=== PATIENT | male | born 1945 | race Caucasian/White ===

== ENCOUNTER 2016-12-12 08:30 | Emergency (ER) | payer BC, MEDICARE ==
[2016-12-12] MEDS ORDERED: Sodium Chloride 0.9% 10 ML Syringe FLUSH PRN (08:39)
[2016-12-12] MEDS ORDERED: Sodium Chloride 0.9% 1,000 ML IV SCH (08:45)
[2016-12-12] MEDS ORDERED: Ondansetron 4 MG/2 ML SDV IVPUSH ONE (08:47)
--- NOTE | 2016-12-12 09:08 | EDM.PDOC ---
ED HISTORY OF PRESENT ILLNESS - General Chief Complaint: Cardiovascular Problem Stated Complaint: [facility] Time Seen by Provider: 12/12/16 08:38 Source of Information: Reports: Patient, EMS, Family, RN notes reviewed - History of Present Illness INITIAL COMMENTS - FREE TEXT/NARRATIVE: 71-year-old male has been brought in by EMS for chest pain after apparently slipping and falling on his driveway this morning a short time ago. He states he was on his way to work. Apparently he was going to go to work by taxi. He states he slipped on the driveway, fell backwards hitting the back part of his head. He states the "wind was knocked out of him" and apparently initially unable to get up. A family member found him on the driveway, helped him walk into the garage. He was having chest pain, nausea and shortness of breath and therefore ambulance was called. They did give him nitroglycerin spray x3 in route and also 2 mg morphine. His chest pain resolved while in route to the ED with very slight discomfort only left anterior chest on arrival to ED. When asked a few minutes later about that during initial exam the chest pain was gone. He also is no longer short of breath. He has very mild headache. He's not sure if he had brief LOC or not. He denies pain to the upper or lower extremities. He denies neck or back discomfort. He has history of hypertension, prior CVA, possible heart disease. - Related Data Allergies/ADRs: Allergies Allergy/AdvReac Type Severity Reaction Status Date / Time No Known Allergies Allergy Verified 12/12/16 08:49 Home Meds: Home Meds Albuterol [IJD: Ventolin HFA] 2 puff INH Q6HR PRN #18 gm 07/10/16 [Rx] Allopurinol [Allopurinol] 100 mg PO DAILY 07/15/16 [History] Divalproex Sodium [Divalproex Sodium] 500 mg PO DAILY 07/15/16 [History] Metoprolol Tartrate 25 mg PO BID 07/15/16 [History] Nabumetone [Nabumetone] 500 mg PO BID 07/15/16 [History] Prozac. 40 mg PO DAILY 07/15/16 [History] levETIRAcetam [Levetiracetam] 500 mg PO TID 12/12/16 [History] Past Medical History HEENT History: Reports: Impaired vision Other HEENT History: wears eyeglasses Cardiovascular History: Reports: RI Respiratory History: Reports: Bronchitis, recurrent Gastrointestinal History: Reports: GERD, GI bleed, PUD Genitourinary History: Reports: Renal calculus Musculoskeletal History: Reports: Fracture, Gout Other Musculoskeletal History: fracture to left arm; Gout most significant in 1 MTP joint. Neurological History: Reports: CVA, Seizure Psychiatric History: Reports: Addiction Other Endocrine/Metabolic History: Family history of Type II diabetes. Hematologic History: Reports: Anemia Other Hematologic History: GI bleed - Infectious Disease History Infectious Disease History: Reports: Chicken pox - Past Surgical History GI Surgical History: Reports: Cholecystectomy, Colonoscopy, ERCP Social & Family History - Tobacco Use Smoking Status *Q: Former Smoker Years of Tobacco use: 50 Packs/Tins Daily: 0.1 - Caffeine Use Caffeine Use: Reports: Coffee, Soda - Recreational Drug Use Recreational Drug Use: No ED ROS GENERAL - Review of Systems Review Of Systems: See Below Constitutional: Reports: diaphoresis (mild, gone). Denies: fever, chills HEENT: Denies: Ear discharge, Throat pain, Vision change Respiratory: Reports: shortness of breath (now better), pleuritic chest pain ( gone) Cardiovascular: Reports: Chest pain (gone), Lightheadedness (now better) GI/Abdominal: Reports: Nausea. Denies: Abdominal pain, Vomiting Musculoskeletal: Denies: neck pain, shoulder pain, arm pain, back pain, joint pain Skin: Denies: rash Neurological: Reports: dizziness (improving), syncope (possible brief). Denies : trouble speaking, weakness (no focal weakness) ED EXAM, GENERAL - Physical Exam Exam: See Below General Appearance: alert, anxious (mild) Eye Exam: bilateral eye: PERRL Ear Exam: bilateral ear: auricle normal Nose: normal inspection Throat/Mouth: Normal inspection, Normal oropharynx Neck: supple, full range of motion, other (nontender) Respiratory/Chest: no respiratory distress, lungs clear, normal breath sounds, chest non-tender Cardiovascular: regular rate, rhythm GI/Abdominal: soft, non tender. No: guarding Extremities: normal inspection, normal range of motion. No: leg pain Neurological: alert, oriented, no motor/sensory deficits Skin Exam: Warm, Dry, Other (mildly pale on arrival to ED). No: Diaphoretic EKG INTERPRETATION EKG Date: 12/12/16 Rhythm: NSR Wrights: normal P-wave: present ST-T: depressed (mild ST depression V4-6, t wave inversion AVL) Course - Vital Signs Last Recorded V/S: Last Vital Signs Temp 96.5 F 12/12/16 08:35 Pulse 75 12/12/16 13:09 Resp 18 12/12/16 08:35 BP 146/96 H 12/12/16 13:09 Pulse Ox 93 L 12/12/16 08:35 - Orders/Labs/Meds Orders: Active Orders 24 hr Category Date Time Status EKG 12 Lead [EKG Documentation Completion] [RC] STAT Care 12/12/16 08:38 Active Peripheral IV Care [RC] . DIRECTED Care 12/12/16 08:39 Active Chest 1V Frontal [CR] Stat Exams 12/12/16 08:38 Taken Knee Min 4V Lt [CR] Stat Exams 12/12/16 11:32 Taken Sodium Chloride 0.9% [Normal Saline] 1,000 ml Med 12/12/16 08:45 Active IV ASDIRECTED Sodium Chloride 0.9% [Saline Flush] Med 12/12/16 08:39 Active 10 ml FLUSH ASDIRECTED PRN Durable Medical Equipment for Discharge [DME for Oth 12/12/16 13:58 Ordered Discharge] [COMM] Stat Peripheral IV Insertion Adult [OM.PC] Stat Oth 12/12/16 08:39 Ordered Medication Orders Sodium Chloride (Normal Saline) 1,000 mls @ 150 mls/hr IV ASDIRECTED MARY Sodium Chloride (Saline Flush) 10 ml FLUSH ASDIRECTED PRN PRN Reason: Keep Vein Open Last Admin: 12/12/16 08:35 Dose: 10 ml Labs: Laboratory Tests 12/12/16 12/12/16 12/12/16 Range/Units 08:40 08:40 08:40 WBC 4.94 (4.23-9.07) K/mm3 RBC 3.99 L (4.63-6.08) M/mm3 Hgb 13.1 L (13.7-17.5) gm/L Hct 39.2 L (40.1-51.0) % MCV 98.2 H (79.0-92.2) fl MCH 32.8 H (25.7-32.2) pg MCHC 33.4 (32.2-35.5) g/dl RDW Std Deviation 50.6 H (35.1-43.9) fL Plt Count 152 L (163-337) K/mm3 MPV 10.1 (9.4-12.3) fl Neut % (Auto) 36.3 (34.0-67.9) % Lymph % (Auto) 49.8 (21.8-53.1) % [place] % (Auto) 9.5 (5.3-12.2) % Eos % (Auto) 4.0 (0.8-7.0) Baso % (Auto) 0.2 (0.1-1.2) % Neut # 1.79 (1.78-5.38) K/mm3 Lymph # 2.46 (1.32-3.57) K/mm3 [place] # 0.47 (0.30-0.82) K/mm3 Eos # 0.20 (0.04-0.54) K/mm3 Baso # 0.01 (0.01-0.08) K/mm3 PT 11.9 (8.0-13.0) SECONDS INR 1.09 Sodium 135 L (136-145) mEq/L Potassium 4.2 (3.5-5.1) mEq/L Chloride 101 (98-107) mEq/L Carbon Dioxide 18 L (21-32) mEq/L Anion Gap 20.2 H (5-15) BUN 18 (7-18) mg/dL Creatinine 1.3 (0.7-1.3) mg/dL Est Cr Clr Drug Dosing 58.86 mL/min Estimated GFR (MDRD) 55 (>60) mL/min BUN/Creatinine Ratio 13.8 L (14-18) Glucose 117 H (80-115) mg/dL Calcium 8.6 (8.5-10.1) mg/dL Total Bilirubin 0.5 (0.2-1.0) mg/dL AST 16 (15-37) U/L ALT 14 L (16-63) U/L Alkaline Phosphatase 70 (46-116) U/L Troponin I < 0.017 (0.00-0.056) ng/mL Total Protein 7.0 (6.4-8.2) g/dl Albumin 3.2 L (3.4-5.0) g/dl Globulin 3.8 gm/dL Albumin/Globulin Ratio 0.8 L (1-2) Ethyl Alcohol 0.00 (0.00) gm% /08/20 Range/Units 11:03 WBC (4.23-9.07) K/mm3 RBC (4.63-6.08) M/mm3 Hgb (13.7-17.5) gm/L Hct (40.1-51.0) % MCV (79.0-92.2) fl MCH (25.7-32.2) pg MCHC (32.2-35.5) g/dl RDW Std Deviation (35.1-43.9) fL Plt Count (163-337) K/mm3 MPV (9.4-12.3) fl Neut % (Auto) (34.0-67.9) % Lymph % (Auto) (21.8-53.1) % [place] % (Auto) (5.3-12.2) % Eos % (Auto) (0.8-7.0) Baso % (Auto) (0.1-1.2) % Neut # (1.78-5.38) K/mm3 Lymph # (1.32-3.57) K/mm3 [place] # (0.30-0.82) K/mm3 Eos # (0.04-0.54) K/mm3 Baso # (0.01-0.08) K/mm3 PT (8.0-13.0) SECONDS INR Sodium (136-145) mEq/L Potassium (3.5-5.1) mEq/L Chloride (98-107) mEq/L Carbon Dioxide (21-32) mEq/L Anion Gap (5-15) BUN (7-18) mg/dL Creatinine (0.7-1.3) mg/dL Est Cr Clr Drug Dosing mL/min Estimated GFR (MDRD) (>60) mL/min BUN/Creatinine Ratio (14-18) Glucose (80-115) mg/dL Calcium (8.5-10.1) mg/dL Total Bilirubin (0.2-1.0) mg/dL AST (15-37) U/L ALT (16-63) U/L Alkaline Phosphatase (46-116) U/L Troponin I 0.018 (0.00-0.056) ng/mL Total Protein (6.4-8.2) g/dl Albumin (3.4-5.0) g/dl Globulin gm/dL Albumin/Globulin Ratio (1-2) Ethyl Alcohol (0.00) gm% Meds: Medications Generic Name Dose Route Start Last Admin Trade Name Freq PRN Reason Stop Dose Admin Sodium Chloride 1,000 mls @ 150 mls/hr 12/12/16 08:45 Normal Saline IV ASDIRECTED MARY Sodium Chloride 10 ml 12/12/16 08:39 12/12/16 08:35 Saline Flush FLUSH 10 ml ASDIRECTED PRN Administration Keep Vein Open Discontinued Medications Generic Name Dose Route Start Last Admin Trade Name Freq PRN Reason Stop Dose Admin Sodium Chloride 500 mls @ 999 mls/hr 12/12/16 10:09 12/12/16 10:17 Normal Saline IV 12/12/16 10:39 999 mls/hr .BOLUS ONE Administration Lorazepam 0.5 mg 12/12/16 09:30 12/12/16 10:01 Ativan IVPUSH 12/12/16 09:31 0.5 mg ONETIME ONE Administration Lorazepam 0.5 mg 12/12/16 10:51 12/12/16 10:57 Ativan IVPUSH 12/12/16 10:52 0.5 mg ONETIME ONE Administration Metoprolol Tartrate 50 mg 12/12/16 12:28 12/12/16 13:09 Lopressor PO 12/12/16 12:29 50 mg ONETIME ONE Administration Ondansetron HCl 4 mg 12/12/16 08:47 12/12/16 09:02 Zofran IVPUSH 12/12/16 08:48 4 mg ONETIME ONE Administration - Re-Assessments/Exams Free Text/Narrative Re-Assessment/Exam: 12/12/16 11:00.CT of head did not show any acute findings. Initial troponin did come back negative as well. Currently awaiting a 2 hour troponin. He did develop some twitching of his right hand and face which she does have intermittently but normally less noticeable than what started a short time ago. Therefore he has been given Ativan so 0.5 mg IV. 12:30. The twitching slowed for a while and then started picking up again so has been given a second dose of Ativan 0.5 mg IV. With that the twitching stopped. We'll give him something to eat and drink and make sure he does okay with that prior to discharge. Also he did start having some left knee discomfort. X-rays of the knee have been obtained. They show severe degenerative disease but no acute fracture. 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 She is working this weekend. Have written a note that will hopefully allow her to be released from work today and tomorrow. She feels comfortable taking him home. He feels up to going home. Discharge instructions as documented. Departure - Departure Time of Disposition: 13:55 Disposition: Home, Self-Care 01 Condition: fair Clinical Impression: Atypical chest pain Fall Qualifiers: Encounter type: initial encounter Qualified Code(s): W19.XXXA - Unspecified fall, initial encounter Knee contusion Qualifiers: Encounter type: initial encounter Laterality: left Qualified Code(s): S80.02XA - Contusion of left knee, initial encounter Concussion Qualifiers: Encounter type: initial encounter Loss of consciousness presence/duration: without LOC Qualified Code(s): S06.0X0A - Concussion without loss of consciousness, initial encounter Arthritis of knee, degenerative Qualifiers: Osteoarthritis type: unspecified Laterality: left Qualified Code(s): M17.12 - Unilateral primary osteoarthritis, left knee Instructions: Fall Prevention in the Home, [id number], Concussion, Adult, [id number], Contusion, [id number] Referrals: Rashi Cueto MD [Primary Care Provider] - Forms: ED Department Discharge, Return to Work/School Form Additional Instructions: Carlos wrap left knee, use walker for now to help you with your walking and balance stability, ice packs and elevation as needed for swelling, rest, continue current medications as prescribed, check blood pressure once or twice daily and keep a record of that, followup clinic as needed, return to ED as needed. The x-rays of your left knee do show significant degenerative arthritis , Follow up with Dr. Barrientos, Orthopedist strongly recommended - My Orders Last 24 Hours: My Active Orders 12/12/16 08:38 EKG 12 Lead [EKG Documentation Completion] [RC] STAT Chest 1V Frontal [CR] Stat 12/12/16 08:39 Peripheral IV Care [RC] . DIRECTED Sodium Chloride 0.9% [Saline Flush] 10 ml FLUSH ASDIRECTED PRN Peripheral IV Insertion Adult [OM.PC] Stat 12/12/16 08:45 Sodium Chloride 0.9% [Normal Saline] 1,000 ml IV ASDIRECTED 12/12/16 11:32 Knee Min 4V Lt [CR] Stat 12/12/16 13:58 Durable Medical Equipment for Discharge [DME for Discharge] [COMM] Stat - Assessment/Plan Last 24 Hours: My Active Orders 12/12/16 08:38 EKG 12 Lead [EKG Documentation Completion] [RC] STAT Chest 1V Frontal [CR] Stat 12/12/16 08:39 Peripheral IV Care [RC] . DIRECTED Sodium Chloride 0.9% [Saline Flush] 10 ml FLUSH ASDIRECTED PRN Peripheral IV Insertion Adult [OM.PC] Stat 12/12/16 08:45 Sodium Chloride 0.9% [Normal Saline] 1,000 ml IV ASDIRECTED 12/12/16 11:32 Knee Min 4V Lt [CR] Stat 12/12/16 13:58 Durable Medical Equipment for Discharge [DME for Discharge] [COMM] Stat
[2016-12-12] MEDS ORDERED: LORazepam 2 MG/ML MDV IVPUSH ONE ×2 (09:30→10:51)
--- NOTE | 2016-12-12 09:53 | CT ---
Head CT Technique: Multiple axial sections through the brain were obtained. Intravenous contrast was not utilized. Comparison: Previous head CT study of 07/15/16. Findings: Ventricles along with basal cisterns and sulci over the convexities are moderately prominent. Diminished density noted within the periventricular and subcortical white matter compatible with small vessel ischemic demyelination change. Similar findings also seen within portions of the basal ganglia. No other abnormal parenchymal densities are seen. No evidence of intracranial hemorrhage. No midline shift or mass effect is seen. Bone window settings were reviewed which show the visualized mastoid and middle ear cavities to appear clear. Visualized paranasal sinuses are also clear. No acute calvarial abnormality is identified. Impression: 1. Senescent change as described above. Findings are fairly stable from previous head CT exam. 2. No acute intracranial abnormality is identified on noncontrast head CT exam. Diagnostic code #2
[2016-12-12] MEDS ORDERED: Sodium Chloride 0.9% 500 ML IV ONE (10:09)
[2016-12-12] MEDS ORDERED: Metoprolol Tartrate 50 MG Tab PO ONE (12:28)
[2016-12-12 14:58] VITALS: BP 140/100
--- NOTE | 2016-12-14 07:15 | CR ---
Chest: Portable view of the chest was obtained. Comparison: Previous chest x-ray dated 11/07/12 is available. Heart size is slightly enlarged. Tortuous thoracic aorta is seen. Lungs are clear with no acute infiltrates. Widening of the right side of the paratracheal soft tissues is seen believed to be stable from prior exams slightly deviating the trachea to the left side. Bony structures are grossly intact. Impression: 1. Incidental findings. Nothing acute is identified on portable chest x-ray. Diagnostic code #2
--- NOTE | 2016-12-14 07:15 | CR ---
Left knee: Four views of the left knee were obtained. Comparison: Previous left knee study of 11/16/12. Severe medial joint space narrowing is seen. This has progressed from previous exam. Lateral joint space is preserved. No acute fracture or other bony abnormality is identified. Impression: 1. Severe medial joint space narrowing. 2. No acute bony abnormality is identified on four-view left knee exam. Diagnostic code #1
== END 2016-12-12 14:45 | disposition home or self-care (01) ==
LOC: JD.ED 08:30
DX: R07.89 Other chest pain (principal); S80.02XA Contusion of left knee, initial encounter; S06.0X0A Concussion without loss of consciousness, initial encounter; W01.10XA Fall on same level from slipping, tripping and stumbling with subsequent striking against unspecified object, initial encounter; Y92.008 Other place in unspecified non-institutional (private) residence as the place of occurrence of the external cause; M17.12 Unilateral primary osteoarthritis, left knee; I10 Essential (primary) hypertension; Z86.73 Personal history of transient ischemic attack (TIA), and cerebral infarction without residual deficits; K21.9 Gastro-esophageal reflux disease without esophagitis; D64.9 Anemia, unspecified; Z79.899 Other long term (current) drug therapy; Z87.891 Personal history of nicotine dependence
CPT/HCPCS: 36415; 70450; 71010; 73564; 80053; 84484; 85025; 85610; 93005; 96361; 96374; 96376; 99285; A9270; G0480; J2060; J2405; J7040; J7050

== ENCOUNTER 2018-05-11 15:13 | Emergency (ER) | payer MEDICARE, BC ==
[2018-05-11 15:23] VITALS: BP 122/87
[2018-05-11] MEDS ORDERED: Sodium Chloride 0.9% 10 ML Syringe FLUSH PRN (15:45)
--- NOTE | 2018-05-11 17:05 | EDM.PDOC ---
ED HPI GENERAL MEDICAL PROBLEM - General Chief Complaint: Cardiovascular Problem Stated Complaint: CHEST PAIN Time Seen by Provider: 05/11/18 15:27 Source of Information: Reports: Patient History Limitations: Reports: No Limitations - History of Present Illness INITIAL COMMENTS - FREE TEXT/NARRATIVE: The patient is a 72-year-old male with a chief complaint of near syncope. He was here at the hospital for an orthopedics appointment and was in the bathroom where he was trying to have a bowel movement. He suddenly felt dizzy, lightheaded, and nauseated. He had tunnel vision. He felt sweaty. He nearly passed out. He did not lose consciousness. He did not have any chest pain. States he always has shortness of breath, no change in that. His blood pressure was taken and was noted to be low with a systolic in the 70s. Patient was brought to the emergency department for further evaluation. He feels much better now. States that he is feeling back to normal. Continues to deny chest pain or any other symptoms at the moment. Denies recent illness. No vomiting or diarrhea. No abdominal pain. Does have a right foot injury fits been evaluated with outside x-rays which were reportedly negative, is concerned that he has a small area of redness on his right ankle that she just noticed today. States that he is prone to cellulitis. Patient states that the area is not particularly painful. Left Arm Pain Score (Numeric/FACES): 7 - Related Data Allergies Allergy/AdvReac Type Severity Reaction Status Date / Time No Known Allergies Allergy Verified 05/11/18 15:19 Home Meds: Home Meds Albuterol [IJD: Ventolin HFA] 2 puff INH Q6HR PRN #18 gm 07/10/16 [Rx] Allopurinol 100 mg PO DAILY 07/15/16 [History] Divalproex Sodium 500 mg PO DAILY 07/15/16 [History] Nabumetone 500 mg PO BID 07/15/16 [History] Prozac. 40 mg PO DAILY 07/15/16 [History] Aspirin [Ecotrin] 81 mg PO DAILY 05/11/18 [History] Doxycycline [Vibramycin] 100 mg PO BID #14 cap 05/11/18 [Rx] Furosemide [Lasix] 20 mg PO DAILY 05/11/18 [History] Metoprolol Tartrate 25 mg PO BID 05/11/18 [History] amLODIPine Besylate [Amlodipine Besylate] 5 mg PO DAILY 05/11/18 [History] levETIRAcetam [Keppra] 500 mg PO TID 05/11/18 [History] Past Medical History HEENT History: Reports: Impaired Vision Other HEENT History: wears glasses Cardiovascular History: Reports: OR Respiratory History: Reports: Bronchitis, Recurrent Gastrointestinal History: Reports: GERD, GI Bleed, PUD Genitourinary History: Reports: Renal Calculus Musculoskeletal History: Reports: Fracture, Gout Other Musculoskeletal History: fracture to left arm; Gout most significant in 1 MTP joint. Neurological History: Reports: CVA, Neuropathy, Peripheral, Seizure Psychiatric History: Reports: Addiction Other Endocrine/Metabolic History: Family history of Type II diabetes. Hematologic History: Reports: Anemia Other Hematologic History: GI bleed - Infectious Disease History Infectious Disease History: Reports: Chicken Pox - Past Surgical History GI Surgical History: Reports: Cholecystectomy Musculoskeletal Surgical History: Reports: Arthroscopic Knee Social & Family History - Tobacco Use Smoking Status *Q: Current Some Day Smoker Years of Tobacco use: 20 Packs/Tins Daily: 0.2 - Caffeine Use Caffeine Use: Reports: Coffee - Recreational Drug Use Recreational Drug Use: No ED ROS GENERAL - Review of Systems Review Of Systems: See Below Constitutional: Denies: Fever HEENT: Reports: No Symptoms Respiratory: Denies: Shortness of Breath Cardiovascular: Reports: Lightheadedness. Denies: Chest Pain Endocrine: Reports: No Symptoms GI/Abdominal: Denies: Abdominal Pain : Reports: No Symptoms Musculoskeletal: Reports: No Symptoms Skin: Reports: No Symptoms Neurological: Reports: Dizziness Psychiatric: Reports: No Symptoms Hematologic/Lymphatic: Reports: No Symptoms Immunologic: Reports: No Symptoms ED EXAM, GENERAL - Physical Exam Exam: See Below Exam Limited By: No Limitations General Appearance: Alert, WD/WN, No Apparent Distress Eye Exam: Bilateral Eye: Normal Inspection Ears: Normal External Exam Nose: Normal Inspection Throat/Mouth: Normal Inspection, Normal Oropharynx, Normal Voice, No Airway Compromise Head: Atraumatic, Normocephalic Neck: Normal Inspection, Supple, Non-Tender, Full Range of Motion Respiratory/Chest: No Respiratory Distress, Lungs Clear, Normal Breath Sounds, No Accessory Muscle Use, Chest Non-Tender Cardiovascular: Normal Peripheral Pulses, Regular Rate, Rhythm, No Edema GI/Abdominal: Soft, Non-Tender, No Distention Back Exam: Normal Inspection Extremities: Other (Right lower extremity: Patient has old appearing ecchymosis along the lateral aspect of the right foot. Just proximal to the right lateral ankle, he has a small area of mild subtle erythema and warmth. No crepitus. Not really tender.) Neurological: Alert, Oriented, CN II-XII Intact, Normal Cognition, No Motor/ Sensory Deficits Psychiatric: Normal Affect, Normal Mood Skin Exam: Warm, Dry, Intact, Normal Color, No Rash Course - Vital Signs Last Recorded V/S: Last Vital Signs Temp 35.8 C 05/11/18 15:19 Pulse 56 L 05/11/18 15:19 Resp 20 05/11/18 15:19 BP 122/87 05/11/18 15:19 Pulse Ox 96 05/11/18 15:19 - Orders/Labs/Meds Orders: Active Orders 24 hr Category Date Time Status EKG 12 Lead [EKG Documentation Completion] [] STAT Care 05/11/18 15:35 Active Peripheral IV Care [RC] . DIRECTED Care 05/11/18 15:46 Active Peripheral IV Care [RC] . DIRECTED Care 05/11/18 15:46 Active Chest 1V Frontal [CR] Stat Exams 05/11/18 15:45 Taken UA W/MICROSCOPIC [URIN] Stat Lab 05/11/18 15:46 Ordered Sodium Chloride 0.9% [Saline Flush] Med 05/11/18 15:45 Active 10 ml FLUSH ASDIRECTED PRN Peripheral IV Insertion Adult [OM.PC] Routine Oth 05/11/18 15:46 Ordered Medication Orders Sodium Chloride (Saline Flush) 10 ml FLUSH ASDIRECTED PRN PRN Reason: Keep Vein Open Last Admin: 05/11/18 16:10 Dose: 10 ml Labs: Laboratory Tests 05/11/18 05/11/18 Range/Units 16:03 16:03 WBC 5.62 (4.23-9.07) K/mm3 RBC 4.13 L (4.63-6.08) M/mm3 Hgb 12.7 L (13.7-17.5) gm/L Hct 38.5 L (40.1-51.0) % MCV 93.2 H (79.0-92.2) fl MCH 30.8 (25.7-32.2) pg MCHC 33.0 (32.2-35.5) g/dl RDW Std Deviation 46.7 H (35.1-43.9) fL Plt Count 184 (163-337) K/mm3 MPV 10.1 (9.4-12.3) fl Neut % (Auto) 52.2 (34.0-67.9) % Lymph % (Auto) 29.4 (21.8-53.1) % Karnes % (Auto) 12.3 H (5.3-12.2) % Eos % (Auto) 5.2 (0.8-7.0) Baso % (Auto) 0.5 (0.1-1.2) % Neut # (Auto) 2.94 (1.78-5.38) K/mm3 Lymph # (Auto) 1.65 (1.32-3.57) K/mm3 Karnes # (Auto) 0.69 (0.30-0.82) K/mm3 Eos # (Auto) 0.29 (0.04-0.54) K/mm3 Baso # (Auto) 0.03 (0.01-0.08) K/mm3 Sodium 139 (136-145) mEq/L Potassium 4.3 (3.5-5.1) mEq/L Chloride 104 (98-107) mEq/L Carbon Dioxide 25 (21-32) mEq/L Anion Gap 14.3 (5-15) BUN 20 H (7-18) mg/dL Creatinine 1.5 H (0.7-1.3) mg/dL Est Cr Clr Drug Dosing 50.30 mL/min Estimated GFR (MDRD) 46 (>60) mL/min BUN/Creatinine Ratio 13.3 L (14-18) Glucose 96 (80-115) mg/dL Calcium 8.8 (8.5-10.1) mg/dL Magnesium 1.8 (1.8-2.4) mg/dl Total Bilirubin 0.8 (0.2-1.0) mg/dL AST 18 (15-37) U/L ALT 16 (16-63) U/L Alkaline Phosphatase 59 (46-116) U/L Troponin I < 0.017 (0.00-0.056) ng/mL Total Protein 7.4 (6.4-8.2) g/dl Albumin 3.2 L (3.4-5.0) g/dl Globulin 4.2 gm/dL Albumin/Globulin Ratio 0.8 L (1-2) Lipase 246 (73-393) U/L Meds: Medications Generic Name Dose Route Start Last Admin Trade Name Cliftonq PRN Reason Stop Dose Admin Sodium Chloride 10 ml 05/11/18 15:45 05/11/18 16:10 Saline Flush FLUSH 10 ml ASDIRECTED PRN Administration Keep Vein Open Discontinued Medications Generic Name Dose Route Start Last Admin Trade Name Freq PRN Reason Stop Dose Admin Doxycycline Hyclate 100 mg 05/11/18 17:06 05/11/18 17:20 Vibramycin PO 05/11/18 17:07 100 mg ONETIME ONE Administration - Re-Assessments/Exams Free Text/Narrative Re-Assessment/Exam: 05/11/18 17:04 EKG shows normal sinus rhythm, mildly prolonged TN interval at 225, intervals otherwise normal, effuse subtle ST depression as the precordial leads less than half a millimeter also has slight ST depression in the inferior leads. Patient has T-wave inversions of the precordial leads and also of lead 1 and aVL. There is no significant change compared to prior EKG. Chest x-ray shows cardiomegaly, no significant acute abnormality. Labs including troponin are unremarkable. Patient has continued to feel well here in the emergency department. His episode is very concerning for vasovagal episode. He did not have complete syncope. He also did not have any chest pain or other cardiac symptoms at that time. Given no EKG change, and negative troponin, and well-appearing patient with normal vital signs, we'll plan to discharge home. Meanwhile his ankle is concerning for early cellulitis, will treat with doxycycline. Departure - Departure Time of Disposition: 18:01 Disposition: Home, Self-Care 01 Clinical Impression: Vasovagal near syncope, Cellulitis of right ankle Prescriptions: Doxycycline [Vibramycin] 100 mg PO BID #14 cap Instructions: Cellulitis, Adult, [id number], Vasovagal Syncope, Adult Referrals: Rashi Cueto MD [Primary Care Provider] - Forms: ED Department Discharge Additional Instructions: 1. Follow up with your primary doctor in about a week. 2. Take doxycycline s prescribed for early ankle cellulitis. 3. Return to the ED if you have another episodes of severe dizziness or passing out, chest pain, shortness of breath, or any other concerning symptoms. - My Orders Last 24 Hours: My Active Orders 05/11/18 15:35 EKG 12 Lead [EKG Documentation Completion] [RC] STAT 05/11/18 15:45 Chest 1V Frontal [CR] Stat Sodium Chloride 0.9% [Saline Flush] 10 ml FLUSH ASDIRECTED PRN 05/11/18 15:46 Peripheral IV Care [RC] . DIRECTED Peripheral IV Care [RC] . DIRECTED UA W/MICROSCOPIC [URIN] Stat Peripheral IV Insertion Adult [OM.PC] Routine - Assessment/Plan Last 24 Hours: My Active Orders 05/11/18 15:35 EKG 12 Lead [EKG Documentation Completion] [RC] STAT 05/11/18 15:45 Chest 1V Frontal [CR] Stat Sodium Chloride 0.9% [Saline Flush] 10 ml FLUSH ASDIRECTED PRN 05/11/18 15:46 Peripheral IV Care [RC] . DIRECTED Peripheral IV Care [RC] . DIRECTED UA W/MICROSCOPIC [URIN] Stat Peripheral IV Insertion Adult [OM.PC] Routine
[2018-05-11] MEDS ORDERED: Doxycycline 100 MG Cap PO ONE (17:06)
--- NOTE | 2018-05-12 07:31 | CR ---
Chest: Portable view of the chest was obtained. Comparison: Prior chest x-ray of 12/12/16. Heart size is slightly enlarged. Tortuous thoracic aorta is seen. Lungs are clear with no acute parenchymal change. Minimal linear density is noted within the lateral left costophrenic angle which is felt compatible with small scar. Bony structures are grossly intact. Impression: 1. Incidental findings. Nothing acute is seen. Diagnostic code #2
== END 2018-05-11 17:39 | disposition home or self-care (01) ==
LOC: JD.ED 15:13
DX: R55 Syncope and collapse (principal); L03.115 Cellulitis of right lower limb; F17.210 Nicotine dependence, cigarettes, uncomplicated; Z79.82 Long term (current) use of aspirin; Z79.899 Other long term (current) drug therapy
CPT/HCPCS: 36415; 71045; 80053; 83690; 83735; 84484; 85025; 93005; 99285; A9270; J7050; 93010; 99284-25

== ENCOUNTER → 2018-10-24 | Day surgery (SDC) | payer MEDICARE, BC ==
[~2018-10-24] MED LIST: Acetaminophen/oxyCODONE 325-5 MG Tab PO PRN; Aspirin 325 MG Tab.EC PO SCH; Bisacodyl 5 MG Tab PO PRN; Bupivacaine 0.25% 10 ML SDV ONE; Bupivacaine 0.25% 30 ML SDV ONE; Cyclobenzaprine 10 MG Tab PO PRN; Docusate Sodium 100 MG Cap PO SCH; EPINEPHrine 1 MG/ML SDV ONE; Famotidine 20 MG Tab PO SCH; Iodine/Sodium Iodide 2% Tincture 30 ML Bottle ONE; Lactated Ringers 1,000 ML IV SCH; Lidocaine 1%/Sod Bicarbonate in NS 8.4% 1 ML Syringe IDERM PRN; Magnesium Hydroxide 400 MG/5 ML Susp 30 ML Cup PO PRN; Midazolam 1 MG/ML 2 ML SDV ONE; Morphine 2 MG/ML Syringe IVPUSH PRN; Morphine 8 MG, EPINEPHrine 0.3 MG, Cefuroxime 750 MG, Ketorolac 30 MG, Sodium Chloride ... ONE; Naloxone 0.4 MG/ML SDV IVPUSH PRN; Ondansetron 4 MG/2 ML SDV IVPUSH PRN; Propofol 200 MG/20 ML SDV ONE; Ropivacaine 0.5% 5 MG/ML 30 ML SDV ONE; Sennosides 8.6 MG Tab PO PRN; Sodium Chloride 0.9% 10 ML Syringe FLUSH PRN; Triamcinolone Acetonide 40 MG/ML 1 ML MDV ONE; Vancomycin 1 GM SDV ONE; ceFAZolin 1 GM Vial ONE; ceFAZolin 2 GM in Premix Bag 1 BAG IV SCH
[2018-10-24 09:48] VITALS: BP 121/80
--- NOTE | 2018-10-24 11:53 | PCM.PREANE ---
Preanesthetic Assessment - Physical Assessment NPO Status Date: 10/23/18 NPO Status Time: 22:30 O2 Sat by Pulse Oximetry: 97 Respiratory Rate: 20 Vital Signs: Last Vital Signs Temp 36.2 C 10/24/18 09:40 Pulse 59 L 10/24/18 09:40 Resp 20 10/24/18 09:40 BP 121/80 10/24/18 09:40 Pulse Ox 97 10/24/18 09:40 Height: 1.83 m Weight: 114.759 kg - Lab Values: Laboratory Last Values MRSA (PCR) Negative 09/28/18 10:35 - Allergies Allergies/Adverse Reactions: Allergies Allergy/AdvReac Type Severity Reaction Status Date / Time No Known Allergies Allergy Verified 10/21/18 14:02 - Acknowledgements Additional Comments: Patient has had EKG changes. Patient states he is sob with CP on a daily basis that sometime radiates down his left arm. CP goes away with rest. Dr Barrientos notified and agreed to have patient further worked up. PreAnesthesia Questionnaire HEENT History: Reports: Impaired Vision Other HEENT History: wears glasses, has dentures Cardiovascular History: Reports: Hypertension, NE, Other (See Below) Respiratory History: Reports: Bronchitis, Recurrent, SOB Gastrointestinal History: Reports: GERD, GI Bleed, PUD Genitourinary History: Reports: None, Renal Calculus BEHAVIORAL HEALTH AIDE History: Reports: None Musculoskeletal History: Reports: Fracture, Gout, Osteoarthritis Other Musculoskeletal History: fracture to left arm; Gout most significant in 1 MTP joint. Usually ambulates with aid of a walker. His is a wheelchair when he' s out and about. Neurological History: Reports: CVA, Neuropathy, Peripheral, Seizure Psychiatric History: Reports: Addiction Other Endocrine/Metabolic History: Family history of Type II diabetes. Hematologic History: Reports: Anemia Other Hematologic History: GI bleed Immunologic History: Reports: None Oncologic (Cancer) History: Reports: None Dermatologic History: Reports: None - Infectious Disease History Infectious Disease History: Reports: Chicken Pox - Past Surgical History Head Surgeries/Procedures: Reports: None Cardiovascular Surgical History: Reports: None Respiratory Surgical History: Reports: None GI Surgical History: Reports: Cholecystectomy, Colonoscopy, EGD Female Surgical History: Reports: None Male Surgical History: Reports: None Neurological Surgical History: Reports: None Musculoskeletal Surgical History: Reports: Arthroscopic Knee Oncologic Surgical History: Reports: None Dermatological Surgical History: Reports: None - SUBSTANCE USE Smoking Status *Q: Current Every Day Smoker Tobacco Use Within Last Twelve Months: Smokeless Tobacco Recreational Drug Use History: No - HOME MEDS Home Medications: Home Meds Allopurinol 100 mg PO DAILY 07/15/16 [History] Divalproex Sodium 500 mg PO BID 07/15/16 [History] Nabumetone 500 mg PO BID 07/15/16 [History] Aspirin [Ecotrin] 81 mg PO DAILY 05/11/18 [History] Metoprolol Tartrate 25 mg PO BEDTIME 05/11/18 [History] amLODIPine Besylate [Amlodipine Besylate] 5 mg PO DAILY 05/11/18 [History] levETIRAcetam [Keppra] 500 mg PO TID 05/11/18 [History] FLUoxetine HCl [Fluoxetine HCl] 40 mg PO DAILY 10/21/18 [History] Naltrexone 50 mg PO DAILY 10/21/18 [History] atorvaSTATin [Lipitor] 20 mg PO DAILY 10/21/18 [History] - CURRENT (IN HOUSE) MEDS Current Meds: Current Medications Aspirin (Ecotrin) 325 mg PO BID MARY Bisacodyl (Dulcolax) 5 mg PO DAILY PRN PRN Reason: Constipation Cyclobenzaprine HCl (Flexeril) 10 mg PO TID PRN PRN Reason: Spasms Docusate Sodium (Colace) 100 mg PO BID MARY Famotidine (Pepcid) 20 mg PO Q12H [facility] Lactated Ringer's (Ringers, Lactated) 1,000 mls @ 125 mls/hr IV ASDIRECTED [facility] Stop: 10/24/18 23:00 Last Admin: 10/24/18 10:35 Dose: 125 mls/hr Cefazolin Sodium/Dextrose 2 gm (/ Premix) 50 mls @ 100 mls/hr IV Q8H [facility] Stop: 10/24/18 23:44 Lidocaine/Sodium Bicarbonate (Buffered Lidocaine 1% In Ns 8.4%) 0.25 ml IDERM ONETIME PRN PRN Reason: Prior to IV Start Stop: 10/24/18 18:00 Last Admin: 10/24/18 10:35 Dose: 0.25 ml Magnesium Hydroxide (Milk Of Magnesia) 30 ml PO BID PRN PRN Reason: Constipation Morphine Sulfate (Morphine) 2 mg IVPUSH Q2H PRN PRN Reason: Breakthrough Pain Naloxone HCl (Narcan) 0.1 mg IVPUSH Q5M PRN PRN Reason: Oversedation Ondansetron HCl (Zofran) 4 mg IVPUSH Q6H PRN PRN Reason: Nausea/Vomiting Oxycodone/Acetaminophen (Percocet 325-5 Mg) 1 - 2 tab PO Q4H PRN PRN Reason: Pain Senna (Senna) 8.6 mg PO BID PRN PRN Reason: Constipation Sodium Chloride (Saline Flush) 10 ml FLUSH ASDIRECTED PRN PRN Reason: Keep Vein Open Stop: 10/24/18 18:00 Discontinued Medications Cefazolin Sodium (Ancef) Confirm Administered Dose 2 gm .ROUTE .STK-MED ONE Stop: 10/24/18 11:18 Morphine Sulfate 8 mg/Epinephrine HCl 0.3 mg/Cefuroxime Sodium 750 mg/Ketorolac Tromethamine 30 mg/Sodium Chloride 27.9 ml 0 mg .XX ONETIME ONE Stop: 10/24/18 07:04 Epinephrine HCl (Adrenalin) Confirm Administered Dose 1 mg .ROUTE .STK-MED ONE Stop: 10/24/18 09:19 Midazolam HCl (Versed 1 Mg/Ml) Confirm Administered Dose 2 mg .ROUTE .STK-MED ONE Stop: 10/24/18 11:18 Propofol (Diprivan 20 Ml) Confirm Administered Dose 600 mg .ROUTE .STK-MED ONE Stop: 10/24/18 11:18 Ropivacaine (Naropin 0.5%) Confirm Administered Dose 30 ml .ROUTE .STK-MED ONE Stop: 10/24/18 09:19
== END | disposition home or self-care (01) ==
LOC: JD.SDS 09:10
PROVIDERS: ATTEND Orthopaedic Surgery
DX: M17.0 Bilateral primary osteoarthritis of knee (principal); I10 Essential (primary) hypertension; I25.2 Old myocardial infarction; F17.290 Nicotine dependence, other tobacco product, uncomplicated; Z53.9 Procedure and treatment not carried out, unspecified reason; Z79.82 Long term (current) use of aspirin; Z79.899 Other long term (current) drug therapy
CPT/HCPCS: 87641; 93005; J0690; J7120; A9270-GY; J0171; J2250; J2704; J2795; J3301; J3370; J3490

== ENCOUNTER 2019-06-30 19:58 | Emergency (ER) | payer MEDICARE, BC ==
[2019-06-30 20:06] VITALS: PULSE 60
--- NOTE | 2019-06-30 20:40 | EDM.PDOC ---
ED HPI GENERAL MEDICAL PROBLEM - General Chief Complaint: Cardiovascular Problem Stated Complaint: HIGH BP Time Seen by Provider: 06/30/19 20:18 Source of Information: Reports: Patient History Limitations: Reports: Other (Patient is confused and repeats himself frequently and does not make a lot of sense) - History of Present Illness INITIAL COMMENTS - FREE TEXT/NARRATIVE: This is a 73-year-old male. He has had a history of several strokes in the past as well as alcoholism. He stopped drinking some years ago. Tonight he went to an AA meeting and had her friend picked him up at home but when he was on the way to the meeting he became somewhat dizzy and he was asked to be dropped off at the ER. He states that his blood pressure goes up and it goes down these been taking his blood pressure constantly today and each time he takes it is different. Therefore he takes his blood pressure medicine based upon what his blood pressure is at that time. He has no idea what his medicines are. He also talks about having some vision problems but this occurred many years ago and it sounds like he probably has glaucoma because he has some eyedrops for that left eye. His eyes are not bothering him tonpaolo. He also states he's been having some left lower quadrant abdominal pain and soreness over the last few days. He says last night he had an episode of feeling really weak and dizzy and he had to go to the bathroom where he pooped stool that stunk real bad. He didn't think that it was black looking or tarry looking but more white and brown but it stunk real bad. Since that time he's been feeling more dizzy and more weak. 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 - Related Data Allergies Allergy/AdvReac Type Severity Reaction Status Date / Time No Known Allergies Allergy Verified 10/21/18 14:02 Home Meds: Home Meds Allopurinol 100 mg PO DAILY 07/15/16 [History] Nabumetone 500 mg PO BID 07/15/16 [History] Aspirin [Ecotrin EC] 81 mg PO DAILY 05/11/18 [History] Metoprolol Tartrate 25 mg PO BID 05/11/18 [History] levETIRAcetam [Keppra] 1,000 mg PO BID 05/11/18 [History] FLUoxetine HCl [Fluoxetine HCl] 40 mg PO DAILY 10/21/18 [History] Naltrexone 50 mg PO DAILY 10/21/18 [History] atorvaSTATin [Lipitor] 20 mg PO DAILY 10/21/18 [History] Carbidopa/Levodopa [Carbidopa-Levo 25-100 MG ODT] 1 tab PO TID 06/30/19 [History ] LORazepam [Ativan] 1 mg PO Q8H PRN #15 tablet 06/30/19 [Rx] Lacosamide [Vimpat] 150 mg PO BID 06/30/19 [History] Past Medical History HEENT History: Reports: Impaired Vision Other HEENT History: wears glasses, has dentures Cardiovascular History: Reports: Hypertension, CT, Other (See Below) Respiratory History: Reports: Bronchitis, Recurrent, SOB Gastrointestinal History: Reports: GERD, GI Bleed, PUD Genitourinary History: Reports: None, Renal Calculus 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 Usually ambulates with aid of a walker. His is a wheelchair when he' s out and about. Neurological History: Reports: CVA, Neuropathy, Peripheral, Seizure Psychiatric History: Reports: Addiction Other Endocrine/Metabolic History: Family history of Type II diabetes. Hematologic History: Reports: Anemia Other Hematologic History: GI bleed Immunologic History: Reports: None Oncologic (Cancer) History: Reports: None Dermatologic History: Reports: None - Infectious Disease History Infectious Disease History: Reports: Chicken Pox - Past Surgical History Head Surgeries/Procedures: Reports: None Cardiovascular Surgical History: Reports: None Respiratory Surgical History: Reports: None GI Surgical History: Reports: Cholecystectomy, Colonoscopy, EGD Male Surgical History: Reports: None Neurological Surgical History: Reports: None Musculoskeletal Surgical History: Reports: Arthroscopic Knee Oncologic Surgical History: Reports: None Dermatological Surgical History: Reports: None Social & Family History - Tobacco Use Smoking Status *Q: Current Every Day Smoker Years of Tobacco use: 60 Packs/Tins Daily: 0.1 - Caffeine Use Caffeine Use: Reports: Coffee, Soda, Tea - Recreational Drug Use Recreational Drug Use: No - Living Situation & Occupation Living situation: Reports: Occupation: Disabled ED ROS GENERAL - Review of Systems Review Of Systems: See Below Constitutional: Reports: Malaise, Weakness, Fatigue. Denies: Fever, Chills, Diaphoresis HEENT: Reports: Other (Vision problems some years ago for which he takes eyedrops) Respiratory: Denies: Shortness of Breath, Cough Cardiovascular: Reports: Blood Pressure Problem, Lightheadedness. Denies: Chest Pain, Edema Endocrine: Reports: No Symptoms GI/Abdominal: Reports: Abdominal Pain, Diarrhea. Denies: Black Stool, Bloody Stool, Nausea, Vomiting : Reports: No Symptoms Musculoskeletal: Reports: Other (Arthralgias) Skin: Reports: Pallor Neurological: Reports: Confusion, Difficulty Walking, Weakness, Other ( Apparently his sensorium is about the same as usual from his strokes and his alcohol use 5 understand correctly). Denies: Headache Psychiatric: Reports: Confusion Hematologic/Lymphatic: Reports: No Symptoms ED EXAM, GENERAL - Physical Exam Exam: See Below Exam Limited By: No Limitations General Appearance: Alert, WD/WN, No Apparent Distress, Obese Eye Exam: Bilateral Eye: Normal Inspection Ears: Normal External Exam Nose: Normal Inspection Throat/Mouth: Normal Inspection, Normal Lips, Normal Voice, No Airway Compromise Head: Normocephalic Neck: Supple, Non-Tender Respiratory/Chest: No Respiratory Distress, Lungs Clear, Normal Breath Sounds Cardiovascular: Regular Rate, Rhythm, No Murmur GI/Abdominal: Soft, Other (He has some mild tenderness in the left lower quadrant on palpation but no masses no rebound noted, there is no other abdominal tenderness on palpation) Rectal (Males) Exam: Other (Hemoccult stool was negative) Back Exam: Decreased Range of Motion Extremities: Normal Inspection. No: Pedal Edema Neurological: Alert, Other (Denies any sensory deficits of his arms and legs, he is confused about events around his life though he does know he went to the meeting [employer] and he is in the hospital). No: Oriented Psychiatric: Other (He does not appear to be upset about anything just concerned because his blood pressure is going up and down) Skin Exam: Pallor. No: Erythema Course - Vital Signs Last Recorded V/S: Last Vital Signs Temp 95.6 F 06/30/19 20:05 Pulse 60 06/30/19 20:05 Resp BP 154/59 H 06/30/19 22:32 Pulse Ox 95 06/30/19 20:05 - Orders/Labs/Meds Orders: Active Orders 24 hr Category Date Time Status EKG 12 Lead [EKG Documentation Completion] [RC] STAT Care 06/30/19 20:38 Active UA W/MICROSCOPIC [URIN] Stat Lab 06/30/19 20:38 Ordered Sodium Chloride 0.9% [Normal Saline] 1,000 ml Med 06/30/19 20:45 Active IV ASDIRECTED Medication Orders Sodium Chloride (Normal Saline) 1,000 mls @ 500 mls/hr IV ASDIRECTED MARY Last Admin: 06/30/19 21:00 Dose: 500 mls/hr Labs: Laboratory Tests 06/30/19 06/30/19 06/30/19 Range/Units 20:43 20:43 20:43 WBC 4.97 (4.23-9.07) K/mm3 RBC 4.23 L (4.63-6.08) M/mm3 Hgb 12.9 L (13.7-17.5) gm/dl Hct 38.3 L (40.1-51.0) % MCV 90.5 (79.0-92.2) fl MCH 30.5 (25.7-32.2) pg MCHC 33.7 (32.2-35.5) g/dl RDW Std Deviation 44.4 H (35.1-43.9) fL Plt Count 220 (163-337) K/mm3 MPV 10.3 (9.4-12.3) fl Neut % (Auto) 47.5 (34.0-67.9) % Lymph % (Auto) 37.8 (21.8-53.1) % [place] % (Auto) 12.1 (5.3-12.2) % Eos % (Auto) 2.4 (0.8-7.0) Baso % (Auto) 0.2 (0.1-1.2) % Neut # (Auto) 2.36 (1.78-5.38) K/mm3 Lymph # (Auto) 1.88 (1.32-3.57) K/mm3 [place] # (Auto) 0.60 (0.30-0.82) K/mm3 Eos # (Auto) 0.12 (0.04-0.54) K/mm3 Baso # (Auto) 0.01 (0.01-0.08) K/mm3 Sodium 139 (136-145) mEq/L Potassium 3.9 (3.5-5.1) mEq/L Chloride 107 (98-107) mEq/L Carbon Dioxide 23 (21-32) mEq/L Anion Gap 12.9 (5-15) BUN 12 (7-18) mg/dL Creatinine 1.2 (0.7-1.3) mg/dL Est Cr Clr Drug Dosing 61.97 mL/min Estimated GFR (MDRD) 60 (>60) mL/min BUN/Creatinine Ratio 10.0 L (14-18) Glucose 90 (83-115) mg/dL Calcium 9.5 (8.5-10.1) mg/dL Total Bilirubin 0.5 (0.2-1.0) mg/dL AST 20 (15-37) U/L ALT 9 L (16-63) U/L Alkaline Phosphatase 74 (46-116) U/L Troponin I < 0.017 (0.00-0.056) ng/mL C-Reactive Protein < 0.2 (<1.0) mg/dL Total Protein 6.9 (6.4-8.2) g/dl Albumin 3.2 L (3.4-5.0) g/dl Globulin 3.7 gm/dL Albumin/Globulin Ratio 0.9 L (1-2) Valproic Acid < 3.0 L (50.0-100.0) ug/mL Meds: Medications Generic Name Dose Route Start Last Admin Trade Name Freq PRN Reason Stop Dose Admin Sodium Chloride 1,000 mls @ 500 mls/hr 06/30/19 20:45 06/30/19 21:00 Normal Saline IV 500 mls/hr ASDIRECTED MARY Administration Discontinued Medications Generic Name Dose Route Start Last Admin Trade Name Freq PRN Reason Stop Dose Admin Clonidine HCl 0.1 mg 06/30/19 22:24 06/30/19 22:32 Catapres PO 06/30/19 22:25 0.1 mg ONETIME ONE Administration Hydralazine HCl 5 mg 06/30/19 23:27 06/30/19 23:35 Apresoline IVPUSH 06/30/19 23:28 5 mg ONETIME ONE Administration Lorazepam 0.5 mg 06/30/19 21:40 06/30/19 21:45 Ativan IVPUSH 06/30/19 21:41 0.5 mg ONETIME ONE Administration Lorazepam 0.5 mg 06/30/19 22:24 06/30/19 22:33 Ativan IVPUSH 06/30/19 22:25 0.5 mg ONETIME ONE Administration - Re-Assessments/Exams Free Text/Narrative Re-Assessment/Exam: 06/30/19 23:56 He been watching this patient giving some clonidine Ativan and finally some hydralazine to get his blood pressure at a decent range. He tends to have a very labile blood pressure. I told the they need to continue the metoprolol 25 mg twice a day for tomorrow morning start with a 5 mg amlodipine. They need to follow-up with her family doctor on Wednesday for recheck. I cautioned him about not checking the blood pressure frequently but at most 3 times a day and if it is elevated to take the Ativan and I'm going to prescribe and have him lay down and maybe 30 or 40 minutes later recheck the blood pressure then. They seemed to understand. Departure - Departure Time of Disposition: 23:57 Disposition: Home, Self-Care 01 Condition: Fair Clinical Impression: Elevated blood pressure reading, Anxiety Prescriptions: LORazepam [Ativan] 1 mg PO Q8H PRN #15 tablet PRN Reason: Anxiety Instructions: How to Take Your Blood Pressure, [id number] Referrals: Rashi Cueto MD [Primary Care Provider] - Forms: ED Department Discharge Additional Instructions: Continue with the metoprolol 25 mg twice a day, in the morning start the amlodipine at 5 mg a day, don't take his blood pressure more than 3 times a day such as breakfast lunch and dinner, if you notice his blood pressure is up then give him an Ativan and have him lay down and then 30 or 40 minutes later recheck his blood pressure, follow up with his family doctor this coming week for recheck of blood pressure medication adjustment, return to the ER if needed - My Orders Last 24 Hours: My Active Orders 06/30/19 20:38 EKG 12 Lead [EKG Documentation Completion] [RC] STAT UA W/MICROSCOPIC [URIN] Stat 06/30/19 20:45 Sodium Chloride 0.9% [Normal Saline] 1,000 ml IV ASDIRECTED - Assessment/Plan Last 24 Hours: My Active Orders 06/30/19 20:38 EKG 12 Lead [EKG Documentation Completion] [RC] STAT UA W/MICROSCOPIC [URIN] Stat 06/30/19 20:45 Sodium Chloride 0.9% [Normal Saline] 1,000 ml IV ASDIRECTED
[2019-06-30] MEDS ORDERED: Sodium Chloride 0.9% 1,000 ML IV SCH (20:45)
[2019-06-30] MEDS ORDERED: LORazepam 2 MG/ML SDV IVPUSH ONE ×2 (21:40→22:24)
[2019-06-30] MEDS ORDERED: cloNIDine 0.1 MG Tab PO ONE (22:24)
[2019-06-30 22:33] VITALS: BP 154/59
[2019-06-30] MEDS ORDERED: hydrALAZINE 20 MG/ML SDV IVPUSH ONE (23:27)
== END 2019-07-01 00:12 | disposition home or self-care (01) ==
LOC: SUPCPDRO 19:58 → JD.ED 19:58
DX: I10 Essential (primary) hypertension (principal); F41.9 Anxiety disorder, unspecified; I25.2 Old myocardial infarction; F17.200 Nicotine dependence, unspecified, uncomplicated; E66.9 Obesity, unspecified; Z68.33 Body mass index [BMI] 33.0-33.9, adult; Z79.899 Other long term (current) drug therapy; Z79.82 Long term (current) use of aspirin; Z86.73 Personal history of transient ischemic attack (TIA), and cerebral infarction without residual deficits
CPT/HCPCS: 36415; 80053; 80164; 84484; 85025; 86140; 93005; 96361; 96374; 96375; 96376; 99285; A9270; J0360; J2060; J7040; 93010; 99283

== ENCOUNTER 2019-10-17 19:06 | Emergency (ER) | payer MEDICARE, BC ==
[2019-10-17 19:35] VITALS: BP 132/78; PULSE 66
--- NOTE | 2019-10-17 19:37 | EDM.PDOC ---
ED HPI GENERAL MEDICAL PROBLEM - General Chief Complaint: Lower Extremity Injury/Pain Stated Complaint: FALL KNEE AND ANKLE PAIN Time Seen by Provider: 10/17/19 19:36 Source of Information: Reports: Patient, Family (Daughter) History Limitations: Reports: Altered Mental Status (Some cognitive difficulty) - History of Present Illness INITIAL COMMENTS - FREE TEXT/NARRATIVE: Mr. Lofton is a pleasant 74-year-old man with a past medical history significant for Parkinson disease, peripheral neuropathy, and a stroke, which left him with cognitive difficulties, who, according to the patient's daughter, often gets dizzy as a result of his Parkinson disease. Such was the case around 19:00 night, which resulted in the patient falling. When he did so, he injured his left knee and left ankle. He may have exacerbated the injuries when he attempted to get up. He denies any other injuries. Here in the ED, the patient is found to be hemodynamically stable. The patient's PCP is Dr. Rashi Cueto. His Neurologist is Dr. Citlali De La Cruz. His Workforce Advisor is Dr. Sheryl Reyes. His Orthopedic Surgeon is Dr. Marita Gray. His Diagnostic Sales Specialist, whose name he does not recall, is at [facility]. He received an influenza vaccine this season. Left Leg Pain Score (Numeric/FACES): 8 - Related Data Allergies Allergy/AdvReac Type Severity Reaction Status Date / Time No Known Allergies Allergy Verified 10/21/18 14:02 Home Meds: Home Meds allopurinoL [Allopurinol] 100 mg PO DAILY 07/15/16 [History] Aspirin [Ecotrin EC] 81 mg PO DAILY 05/11/18 [History] Metoprolol Tartrate 25 mg PO DAILY 05/11/18 [History] levETIRAcetam [Keppra] 1,000 mg PO BID 05/11/18 [History] FLUoxetine HCl [Fluoxetine HCl] 40 mg PO DAILY 10/21/18 [History] Naltrexone 50 mg PO DAILY 10/21/18 [History] atorvaSTATin [Lipitor] 20 mg PO DAILY 10/21/18 [History] Carbidopa/Levodopa [Carbidopa-Levo 25-100 MG ODT] 1 tab PO TID 06/30/19 [History ] LORazepam [Ativan] 1 mg PO Q8H PRN #15 tablet 06/30/19 [Rx] Lacosamide [Vimpat] 150 mg PO BID 06/30/19 [History] Gabapentin [Neurontin] 300 mg PO TID 10/17/19 [History] amLODIPine [Norvasc] 2.5 mg PO DAILY 10/17/19 [History] Past Medical History HEENT History: Reports: Impaired Vision Other HEENT History: wears glasses, has dentures Cardiovascular History: Reports: High Cholesterol, Hypertension Gastrointestinal History: Reports: GERD, GI Bleed, PUD Genitourinary History: Reports: Chronic Renal Insuffiency (2 non-functioning right kidney), Renal Calculus Musculoskeletal History: Reports: Fracture (left forearm), Gout, Osteoarthritis Neurological History: Reports: CVA (resultant cognitive difficulty), Neuropathy , Peripheral, Seizure Psychiatric History: Reports: Addiction (alcohol) Endocrine/Metabolic History: Reports: Obesity/BMI 30+ Hematologic History: Reports: Anemia - Infectious Disease History Infectious Disease History: Reports: Chicken Pox - Past Surgical History HEENT Surgical History: Reports: Oral Surgery (Dentures) GI Surgical History: Reports: Cholecystectomy (late 1970s), Colonoscopy (x 1), EGD (x 3 or 4), Other (See Below) (Exploratory laparotomy 1972) Musculoskeletal Surgical History: Reports: Arthroscopic Knee (left) Social & Family History - Tobacco Use Smoking Status *Q: Never Smoker Tobacco Use Within Last Twelve Months: Smokeless Tobacco (CHews about 1/10 can/ day, down from 1 can/day) - Caffeine Use Caffeine Use: Reports: Coffee, Soda, Tea - Alcohol Use Date/Time of Last Drink Comment: Alcoholic, sober since 2013 - Recreational Drug Use Recreational Drug Use: No - Living Situation & Occupation Living situation: Reports: , with Spouse, with Family (Daughter, her 3 kids, and her fianc) Occupation: Retired Review of Systems - Review of Systems Review Of Systems: Comprehensive ROS is negative, except as noted in HPI. ED EXAM, GENERAL - Physical Exam Exam: See Below Exam Limited By: No Limitations General Appearance: Alert, WD/WN, No Apparent Distress Extremities: Other (No visible abnormality to the patient's left knee, such as swelling, erythema, ecchymosis, or abrasion, however, the patient reports mild tenderness to palpation to his patella, and all around his knee joint. No significant tenderness elsewhere. No visible abnormality to the patient's left ankle, such as swelling, erythema, ecchymosis, or abrasion. The patient reports mild tenderness to the medial malleolus, and minimal tenderness to the anterior syndesmosis, but no tenderness to the posterior syndesmosis or lateral ankle. Mild pain is induced with PROM. Neurovascular status of the left lower extremity is intact.) Course - Vital Signs Last Recorded V/S: Last Vital Signs Temp 36.1 C 10/17/19 19:26 Pulse 66 10/17/19 19:26 Resp 16 10/17/19 19:26 BP 132/78 10/17/19 19: Pulse Ox 96 10/17/19 19:26 - Re-Assessments/Exams Free Text/Narrative Re-Assessment/Exam: 10/17/19 20:02 As per the HPI, the patient is complaining of some left knee and left ankle pain following a fall at home. There are no visible abnormalities on examination, although the patient has some tenderness to his left knee and the medial aspect of his left ankle. My suspicion for a fracture is low, but I have ordered x-rays of both, just to be certain. 10/17/19 21:39 3-view radiographs of the left knee reviewed. There appears to be advanced arthritis, with near-bone on bone on the medial aspect of the joint, but no fractures or dislocations identified. Formal read per the Radiologist pending. 4-view radiographs of the left ankle reviewed. Calcaneal bone spur incidentally noted, but no fractures or dislocations identified. Formal read per the Radiologist pending. 10/17/19 21:44 Test results discussed with the patient and his daughter. A granddaughter is now present, as well. The patient had inquired about coming into the hospital for physical therapy, however, the patient's daughter pointed out that the patient has already been referred to outpatient therapy by his Neurologist. The patient feels well enough to go home. I am recommending ice and ibuprofen as needed. Departure - Departure Time of Disposition: 21:45 Disposition: Home, Self-Care 01 Condition: Good Clinical Impression: Strain of left knee, Left ankle strain, Fall at home - Discharge Information *PRESCRIPTION DRUG MONITORING PROGRAM REVIEWED*: Not Applicable *COPY OF PRESCRIPTION DRUG MONITORING REPORT IN PATIENT TEGAN: Not Applicable Instructions: Ankle Sprain, [id number], Knee Sprain, Adult, [id number] Referrals: Rashi Cueto MD [Primary Care Provider] - Marita Gray MD [Ordering Only Provider] - Sheryl Reyes MD [Physician] - Citlali De La Cruz MD [Ordering Only Provider] - Forms: ED Department Discharge Additional Instructions: You were seen in the emergency room after falling at home, injuring her left knee and left ankle. Workup in the ER included x-rays of your left knee and ankle, which show arthritis, but no broken bones or dislocations. Based on your history, physical exam, and ER x-rays, you appear to have strained both your left knee and left ankle. We recommend that you apply ice to areas of pain, as needed for swelling, and take [id number] ibuprofen as needed for discomfort. We agree with your attending outpatient physical therapy. If any other problems, please do not hesitate to return to the ER. Sepsis Event Note - Evaluation Sepsis Screening Result: No Definite Risk - Focused Exam Date Exam was Performed: 10/20/19 Time Exam was Performed: 18:57
--- NOTE | 2019-10-18 06:49 | CR ---
Left ankle: Four views of the left ankle were obtained. Comparison: No previous ankle study. Slight vascular calcification is noted. Plantar spur is seen. Small spur is noted at the attachment of the Achilles tendon. Small calcification is noted off the lateral talus compatible with old injury. Ankle mortise is symmetric. No acute fracture, dislocation or other bony abnormality is appreciated. Impression: 1. Findings believed to be incidental as noted above. 2. Nothing acute is identified on left ankle exam. Diagnostic code #2 This report was dictated in [place] Standard Time
--- NOTE | 2019-10-18 07:21 | CR ---
Left knee: AP, lateral and sunrise patellar views of the left knee were obtained. Comparison: Previous left knee exam of 12/12/16. Severe medial joint space narrowing is seen. Medial osteophytes are noted. Lateral joint space is maintained. Mild joint space narrowing is noted within the patellofemoral joint with mild patellar osteophyte being seen laterally. No joint effusion is seen. No acute fracture or other bony abnormality is identified. Impression: 1. Degenerative change as noted above. Degenerative change fairly stable from previous exam. 2. Nothing acute is appreciated. Diagnostic code #2 This report was dictated in [place] Standard Time
== END 2019-10-17 22:00 | disposition home or self-care (01) ==
LOC: JD.ED 19:06
DX: S96.912A Strain of unspecified muscle and tendon at ankle and foot level, left foot, initial encounter (principal); S86.912A Strain of unspecified muscle(s) and tendon(s) at lower leg level, left leg, initial encounter; I10 Essential (primary) hypertension; E78.00 Pure hypercholesterolemia, unspecified; E66.9 Obesity, unspecified; G20 Parkinson's disease; Z79.82 Long term (current) use of aspirin; Z79.899 Other long term (current) drug therapy; W19.XXXA Unspecified fall, initial encounter; Y92.009 Unspecified place in unspecified non-institutional (private) residence as the place of occurrence of the external cause
CPT/HCPCS: 73562-26-LT; 73562-LT; 73610-26-LT; 73610-LT; 99282; 99283-25

== ENCOUNTER 2020-10-22 07:56 | Day surgery (SDC) | payer MEDICARE, BC ==
[~2020-10-22 07:56] MED LIST changes: -Acetaminophen/oxyCODONE 325-5 MG Tab PO PRN; -Aspirin 325 MG Tab.EC PO SCH; -Bisacodyl 5 MG Tab PO PRN; -Bupivacaine 0.25% 10 ML SDV ONE; -Bupivacaine 0.25% 30 ML SDV ONE; +Cefuroxime 10 MG/ML SYRINGE EYERT SCH; -Cyclobenzaprine 10 MG Tab PO PRN; -Docusate Sodium 100 MG Cap PO SCH; -EPINEPHrine 1 MG/ML SDV ONE; -Famotidine 20 MG Tab PO SCH; -Iodine/Sodium Iodide 2% Tincture 30 ML Bottle ONE; -Lactated Ringers 1,000 ML IV SCH; +Lidocaine 1% PF 2 ML SDV INJECT SCH; -Lidocaine 1%/Sod Bicarbonate in NS 8.4% 1 ML Syringe IDERM PRN; -Magnesium Hydroxide 400 MG/5 ML Susp 30 ML Cup PO PRN; -Midazolam 1 MG/ML 2 ML SDV ONE; -Morphine 2 MG/ML Syringe IVPUSH PRN; -Morphine 8 MG, EPINEPHrine 0.3 MG, Cefuroxime 750 MG, Ketorolac 30 MG, Sodium Chloride ... ONE; -Naloxone 0.4 MG/ML SDV IVPUSH PRN; -Ondansetron 4 MG/2 ML SDV IVPUSH PRN; +Pilocarpine 4% Ophth Soln 15 ML Bot EYERT SCH; -Propofol 200 MG/20 ML SDV ONE; -Ropivacaine 0.5% 5 MG/ML 30 ML SDV ONE; -Sennosides 8.6 MG Tab PO PRN; -Sodium Chloride 0.9% 10 ML Syringe FLUSH PRN; -Triamcinolone Acetonide 40 MG/ML 1 ML MDV ONE; -Vancomycin 1 GM SDV ONE; -ceFAZolin 1 GM Vial ONE; -ceFAZolin 2 GM in Premix Bag 1 BAG IV SCH
[2020-10-22] MEDS: Polymyxin B/Trimethoprim 10 ML Bottle EYERT SCH ×3 (08:00→10:19)
[2020-10-22] MEDS: Brimonidine 0.2% Ophth Soln 5 ML Bottle EYERT SCH ×3 (08:06→10:19)
[2020-10-22] MEDS: Phenylephrine 2.5% Ophth Soln 15 ML Bot EYERT SCH ×5 (08:11→09:57)
--- NOTE | 2020-10-22 08:11 | PCM.PREANE ---
Preanesthetic Assessment - Anesthesia/Transfusion/Family Hx Anesthesia History: Prior Anesthesia Without Reaction Family History of Anesthesia Reaction: No Transfusion History: No Prior Transfusion(s) Intubation History: Unknown - Review of Systems General: No Symptoms Pulmonary: No Symptoms Cardiovascular: No Symptoms Gastrointestinal: No Symptoms Neurological: No Symptoms Other: Reports: None - Physical Assessment NPO Status Date: 10/21/20 NPO Status Time: 23:30 Height: 1.83 m Weight: 111.13 kg ASA Class: 3 Mental Status: Alert & Oriented x3 Airway Class: Mallampati = 2 Dentition: Reports: Dentures (upper/lower) Thyro-Mental Finger Breadths: 3 Mouth Opening Finger Breadths: 3 ROM/Head Extension: Full Lungs: Clear to Auscultation, Normal Respiratory Effort - Allergies Allergies/Adverse Reactions: Allergies Allergy/AdvReac Type Severity Reaction Status Date / Time No Known Allergies Allergy Verified 10/21/20 13:53 - Anesthesia Plan Beta Brendan: Metoprolol Med Last Dose Date: 10/22/20 Med Last Dose Time: 07:00 - Acknowledgements Anesthesia Type Planned: MAC Pt an Appropriate Candidate for the Planned Anesthesia: Yes Alternatives and Risks of Anesthesia Discussed w Pt/Guardian: Yes Pt/Guardian Understands and Agrees with Anesthesia Plan: Yes PreAnesthesia Questionnaire HEENT History: Reports: Impaired Vision Other HEENT History: wears glasses, has dentures Cardiovascular History: Reports: High Cholesterol, Hypertension, SOB on Exertion Respiratory History: Reports: Bronchitis, Recurrent, SOB Gastrointestinal History: Reports: GERD, GI Bleed, PUD Genitourinary History: Reports: Chronic Renal Insuffiency (2 non-functioning right kidney), Renal Calculus FINANCIAL SERVICES PROFESSIONAL History: Reports: None Musculoskeletal History: Reports: Fracture (left forearm), Gout, Osteoarthritis Other Musculoskeletal History: fracture to left arm; Gout most significant in 1 MTP joint. Usually ambulates with aid of a walker. His is a wheelchair when he's out and about. Neurological History: Reports: CVA (resultant cognitive difficulty), Neuropathy, Peripheral, Parkinson's, Seizure Psychiatric History: Reports: Addiction (alcohol) Endocrine/Metabolic History: Reports: Obesity/BMI 30+ Other Endocrine/Metabolic History: Family history of Type II diabetes. Hematologic History: Reports: Anemia Other Hematologic History: GI bleed Immunologic History: Reports: None Oncologic (Cancer) History: Reports: None Dermatologic History: Reports: None - Infectious Disease History Infectious Disease History: Reports: Chicken Pox - Past Surgical History HEENT Surgical History: Reports: Oral Surgery (Dentures) GI Surgical History: Reports: Cholecystectomy (late 1970s), Colonoscopy (x 1), EGD (x 3 or 4), Other (See Below) (Exploratory laparotomy 1972) Musculoskeletal Surgical History: Reports: Arthroscopic Knee (left) - SUBSTANCE USE Tobacco Use Status *Q: Never Tobacco User - HOME MEDS Home Medications: Home Meds allopurinoL [Allopurinol] 100 mg PO DAILY 07/15/16 [History] Aspirin [Ecotrin EC] 81 mg PO DAILY 05/11/18 [History] Metoprolol Tartrate 25 mg PO DAILY 05/11/18 [History] FLUoxetine HCl [Fluoxetine HCl] 40 mg PO DAILY 10/21/18 [History] Naltrexone 50 mg PO DAILY 10/21/18 [History] Carbidopa/Levodopa [Carbidopa-Levo 25-100 MG ODT] 1 tab PO TID 06/30/19 [History] Lacosamide [Vimpat] 150 mg PO BID 06/30/19 [History] Gabapentin [Neurontin] 300 mg PO TID 10/17/19 [History] amLODIPine [Norvasc] 2.5 mg PO DAILY 10/17/19 [History] Furosemide [Lasix] 20 mg PO DAILY 10/21/20 [History] atorvaSTATin [Lipitor] 10 mg PO DAILY 10/21/20 [History] - CURRENT (IN HOUSE) MEDS Current Meds: Current Medications Brimonidine Tartrate (Alphagan 0.2% Ophth Soln) 0 ml EYERT ASDIRECTED MARY Stop: 10/22/20 18:00 Cefuroxime Sodium (Zinacef) 0 mg EYERT ASDIRECTED MARY Stop: 10/22/20 18:00 Lidocaine HCl (Xylocaine-Mpf 1%) 0 ml INJECT ASDIRECTED MARY Stop: 10/22/20 18:00 Phenylephrine HCl (Onur-Synephrine 2.5% Ophth Soln) 0 ml EYERT ASDIRECTED MARY Stop: 10/22/20 18:00 Pilocarpine HCl (Pilocar 4% Ophth Soln) 0 ml EYERT ASDIRECTED MARY Stop: 10/22/20 18:00 Polymyxin/Trimethoprim Sulfate (Polytrim Ophth Soln) 0 ml EYERT ASDIRECTED MARY Stop: 10/22/20 18:00 Last Admin: 10/22/20 08:00 Dose: 1 drop Documented by: Tetracaine HCl (Tetracaine 0.5% Steri-Unit Aria) 0 ml EYEBOTH ASDIRECTED MARY Stop: 10/22/20 18:00 Tropicamide (Mydriacyl 1% Ophth Soln) 0 ml EYERT ASDIRECTED [facility] Stop: 10/22/20 18:00
[2020-10-22] MEDS: Tropicamide 1% Ophth Soln 15 ML Bottle EYERT SCH ×4 (08:16→09:45)
[2020-10-22] MEDS: Tetracaine HCl/PF 0.5% 4 ML Bottle EYEBOTH SCH ×4 (09:54→10:04)
--- NOTE | 2020-10-22 10:05 | PCM48HPAN ---
Post Anesthesia Note - EVALUATION WITHIN 48HRS OF ANESTHETIC Vital Signs in Normal Range: Yes Patient Participated in Evaluation: Yes Respiratory Function Stable: Yes Airway Patent: Yes Cardiovascular Function Stable: Yes Hydration Status Stable: Yes Pain Control Satisfactory: Yes Nausea and Vomiting Control Satisfactory: Yes Mental Status Recovered: Yes Vital Signs: Last Vital Signs Temp 36.2 C 10/22/20 07:45 Pulse 57 L 10/22/20 07:45 Resp 16 10/22/20 07:45 BP 136/83 10/22/20 07:45 Pulse Ox 94 L 10/22/20 07:45
[2020-10-22 10:42] VITALS: BP 143/98; PULSE 55
== END 2020-10-22 10:35 | disposition home or self-care (01) ==
LOC: JD.SDS 07:56
PROVIDERS: ATTEND Ophthalmology
DX: H25.813 Combined forms of age-related cataract, bilateral (principal); H57.813 Brow ptosis, bilateral; H02.831 Dermatochalasis of right upper eyelid; H40.003 Preglaucoma, unspecified, bilateral; H16.103 Unspecified superficial keratitis, bilateral; H16.223 Keratoconjunctivitis sicca, not specified as Sjogren's, bilateral; Z86.73 Personal history of transient ischemic attack (TIA), and cerebral infarction without residual deficits; E78.00 Pure hypercholesterolemia, unspecified; I10 Essential (primary) hypertension; F17.220 Nicotine dependence, chewing tobacco, uncomplicated; Z79.899 Other long term (current) drug therapy; Z79.82 Long term (current) use of aspirin
CPT/HCPCS: 66984; C1780; J0697; J2001

== ENCOUNTER 2020-11-19 09:00 | Day surgery (SDC) | payer MEDICARE, BC ==
[~2020-11-19 09:00] MED LIST changes: -Cefuroxime 10 MG/ML SYRINGE EYERT SCH; -Pilocarpine 4% Ophth Soln 15 ML Bot EYERT SCH
[2020-11-19] MEDS: Polymyxin B/Trimethoprim 10 ML Bottle EYELF SCH ×4 (09:20→10:49)
[2020-11-19] MEDS: Brimonidine 0.2% Ophth Soln 5 ML Bottle EYELF SCH ×4 (09:29→10:49)
--- NOTE | 2020-11-19 09:33 | PCM.PREANE ---
Preanesthetic Assessment - Procedure Proposed Procedure: Cataract extraction with IOL of left eye. - Anesthesia/Transfusion/Family Hx Anesthesia History: Prior Anesthesia Without Reaction Family History of Anesthesia Reaction: No Transfusion History: No Prior Transfusion(s) Intubation History: Unknown - Review of Systems General: No Symptoms Pulmonary: No Symptoms (chewing tobacco with packing) Cardiovascular: No Symptoms (Elevated cholesterol/HTN/MN) Gastrointestinal: No Symptoms Neurological: No Symptoms (History of CVA 1980's/Parkinson's), Numbness (neuropathy of bilateral legs/feet.), Seizure Other: Reports: Depression, Anxiety - Physical Assessment NPO Status Date: 11/18/20 NPO Status Time: 23:30 Vital Signs: Last Vital Signs Temp 36.0 C L 11/19/20 09:00 Pulse 58 L 11/19/20 09:00 Resp 20 11/19/20 09:00 BP 128/80 11/19/20 09:00 Pulse Ox 93 L 11/19/20 09:00 Height: 1.88 m Weight: 111.13 kg ASA Class: 3 Mental Status: Alert & Oriented x3 Dentition: Reports: Dentures (upper and lower) Thyro-Mental Finger Breadths: 3 Mouth Opening Finger Breadths: 3 ROM/Head Extension: Full Lungs: Clear to Auscultation, Normal Respiratory Effort Cardiovascular: Regular Rate, Regular Rhythm, No Murmurs - Allergies Allergies/Adverse Reactions: Allergies Allergy/AdvReac Type Severity Reaction Status Date / Time No Known Allergies Allergy Verified 11/18/20 14:21 - Anesthesia Plan Pre-Op Medication Ordered: Beta Brendan Beta Brendan: Metoprolol Med Last Dose Date: 11/19/20 Med Last Dose Time: 08:00 - Acknowledgements Anesthesia Type Planned: MAC Pt an Appropriate Candidate for the Planned Anesthesia: Yes Alternatives and Risks of Anesthesia Discussed w Pt/Guardian: Yes Pt/Guardian Understands and Agrees with Anesthesia Plan: Yes PreAnesthesia Questionnaire HEENT History: Reports: Impaired Vision Other HEENT History: wears glasses, has dentures Cardiovascular History: Reports: High Cholesterol, Hypertension, SOB on Exertion Respiratory History: Reports: Bronchitis, Recurrent, SOB Gastrointestinal History: Reports: GERD, GI Bleed, PUD Genitourinary History: Reports: Chronic Renal Insuffiency (2 non-functioning right kidney), Renal Calculus RESIN MIXER History: Reports: None Musculoskeletal History: Reports: Fracture (left forearm), Gout, Osteoarthritis Other Musculoskeletal History: fracture to left arm; Gout most significant in 1 MTP joint. Usually ambulates with aid of a walker. His is a wheelchair when he's out and about. Neurological History: Reports: CVA (resultant cognitive difficulty), Neuropathy, Peripheral, Parkinson's, Seizure Psychiatric History: Reports: Addiction (alcohol) Endocrine/Metabolic History: Reports: Obesity/BMI 30+ Other Endocrine/Metabolic History: Family history of Type II diabetes. Hematologic History: Reports: Anemia Other Hematologic History: GI bleed Immunologic History: Reports: None Oncologic (Cancer) History: Reports: None Dermatologic History: Reports: None - Infectious Disease History Infectious Disease History: Reports: Chicken Pox - Past Surgical History HEENT Surgical History: Reports: Oral Surgery (Dentures) GI Surgical History: Reports: Cholecystectomy (late 1970s), Colonoscopy (x 1), EGD (x 3 or 4), Other (See Below) (Exploratory laparotomy 1972) Musculoskeletal Surgical History: Reports: Arthroscopic Knee (left) - HOME MEDS Home Medications: Home Meds allopurinoL [Allopurinol] 100 mg PO DAILY 07/15/16 [History] Aspirin [Ecotrin EC] 81 mg PO DAILY 05/11/18 [History] Metoprolol Tartrate 25 mg PO DAILY 05/11/18 [History] FLUoxetine HCl [Fluoxetine HCl] 40 mg PO DAILY 10/21/18 [History] Naltrexone 50 mg PO DAILY 10/21/18 [History] Carbidopa/Levodopa [Carbidopa-Levo 25-100 MG ODT] 1 tab PO TID 06/30/19 [History] Lacosamide [Vimpat] 150 mg PO BID 06/30/19 [History] Gabapentin [Neurontin] 300 mg PO TID 10/17/19 [History] amLODIPine [Norvasc] 2.5 mg PO DAILY 10/17/19 [History] Furosemide [Lasix] 20 mg PO DAILY 10/21/20 [History] atorvaSTATin [Lipitor] 10 mg PO DAILY 10/21/20 [History] levETIRAcetam [Keppra] 1,000 mg PO BID 11/19/20 [History] - CURRENT (IN HOUSE) MEDS Current Meds: Current Medications Brimonidine Tartrate (Alphagan 0.2% [facility]) 0 ml EYELF ASDIRECTED MARY Stop: 11/19/20 18:00 Cefuroxime Sodium (Zinacef) 0 mg EYELF ASDIRECTED MARY Stop: 11/19/20 18:00 Lidocaine HCl (Xylocaine-Mpf 1%) 0 ml INJECT ASDIRECTED MARY Stop: 11/19/20 18:00 Phenylephrine HCl (Onur-Synephrine 2.5% Ophth Soln) 0 ml EYELF ASDIRECTED MARY Stop: 11/19/20 18:00 Pilocarpine HCl (Pilocar 4% Ophth Soln) 0 ml EYELF ASDIRECTED MARY Stop: 11/19/20 18:00 Polymyxin/Trimethoprim Sulfate (Polytrim Ophth Soln) 0 ml EYELF ASDIRECTED MARY Stop: 11/19/20 18:00 Last Admin: 11/19/20 09:20 Dose: 1 drop Documented by: Tetracaine HCl (Tetracaine 0.5% Steri-Unit Aria) 0 ml EYEBOTH ASDIRECTED MARY Stop: 11/19/20 18:00 Tropicamide (Mydriacyl 1% Ophth Soln) 0 ml EYELF ASDIRECTED MARY Stop: 11/19/20 18:00
[2020-11-19] MEDS: Phenylephrine 2.5% Ophth Soln 15 ML Bot EYELF SCH ×5 (09:35→10:28)
[2020-11-19] MEDS: Tropicamide 1% Ophth Soln 15 ML Bottle EYELF SCH ×4 (09:43→10:17)
[2020-11-19] MEDS: Tetracaine HCl/PF 0.5% 4 ML Bottle EYEBOTH SCH ×2 (10:19→10:37)
[2020-11-19] MEDS: Cefuroxime 10 MG/ML SYRINGE EYELF SCH ×2 (10:46→10:49)
[2020-11-19] MEDS: Pilocarpine 4% Ophth Soln 15 ML Bot EYELF SCH ×2 (10:47→10:49)
--- NOTE | 2020-11-19 10:50 | PCM48HPAN ---
Post Anesthesia Note - EVALUATION WITHIN 48HRS OF ANESTHETIC Vital Signs in Normal Range: Yes Patient Participated in Evaluation: Yes Respiratory Function Stable: Yes Airway Patent: Yes Cardiovascular Function Stable: Yes Hydration Status Stable: Yes Pain Control Satisfactory: Yes Nausea and Vomiting Control Satisfactory: Yes Mental Status Recovered: Yes Vital Signs: Last Vital Signs Temp 36.0 C L 11/19/20 09:00 Pulse 58 L 11/19/20 09:00 Resp 20 11/19/20 09:00 BP 128/80 11/19/20 09:00 Pulse Ox 93 L 11/19/20 09:00
[2020-11-19 11:09] VITALS: BP 134/84; PULSE 54
== END 2020-11-19 11:15 | disposition home or self-care (01) ==
LOC: JD.SDS 09:00
PROVIDERS: ATTEND Ophthalmology
DX: H25.812 Combined forms of age-related cataract, left eye (principal); H02.834 Dermatochalasis of left upper eyelid; H02.831 Dermatochalasis of right upper eyelid; H57.813 Brow ptosis, bilateral; H40.003 Preglaucoma, unspecified, bilateral; H11.823 Conjunctivochalasis, bilateral; I10 Essential (primary) hypertension; I25.2 Old myocardial infarction; G20 Parkinson's disease; I67.89 Other cerebrovascular disease; E78.00 Pure hypercholesterolemia, unspecified; M10.9 Gout, unspecified; F17.220 Nicotine dependence, chewing tobacco, uncomplicated; M06.9 Rheumatoid arthritis, unspecified; E66.9 Obesity, unspecified; Z98.890 Other specified postprocedural states; Z83.518 Family history of other specified eye disorder; Z79.82 Long term (current) use of aspirin; Z79.899 Other long term (current) drug therapy; Z96.1 Presence of intraocular lens; Z68.31 Body mass index [BMI] 31.0-31.9, adult
CPT/HCPCS: 66984; J0697; C1780

== ENCOUNTER 2021-05-14 09:00 | Day surgery (SDC) | payer MEDICARE, BC ==
[~2021-05-14 09:00] MED LIST changes: +Albuterol 0.083% 2.5 MG/3 ML Neb Soln NEB SCH; +Lactated Ringers 1,000 ML IV SCH; -Lidocaine 1% PF 2 ML SDV INJECT SCH; +Lidocaine 1%/Sod Bicarbonate in NS 8.4% 1 ML Syringe IDERM PRN; +Midazolam 1 MG/ML 2 ML SDV ONE; +Sodium Chloride 0.9% 10 ML Syringe FLUSH PRN
--- NOTE | 2021-05-14 09:16 | PCM.PREANE ---
Preanesthetic Assessment - Procedure Proposed Procedure: Colonoscopy - Anesthesia/Transfusion/Family Hx Anesthesia History: Prior Anesthesia Without Reaction Family History of Anesthesia Reaction: No Transfusion History: No Prior Transfusion(s) Intubation History: Unknown - Review of Systems General: No Symptoms Pulmonary: Shortness of Breath (when going up stairs patient stated that he does get short of breath) Cardiovascular: No Symptoms (History of palpitations, patient stated that hasn't had a "couple years") Gastrointestinal: Diarrhea (from prep and does have loose stool baseline), Difficulty Swallowing (Following stroke - has improved with portion control and chewing and taking time with eating) Neurological: Numbness (Neuropathy to bilateral feet, toes, and fingers ), Seizure (April 19, 2021, saw primary regaring this event and primary physician st ated that patient was at a good level for [facility] and [facility]. Spoke with HAL Leone (Dr. Renae's RN) regarding patient's follow up regarding seizure and they confirmed that patient was okay to proceed with colonoscopy from their standpoint.), Tremors (Parkinsons), Gait Disturbance (Usues a cane to walk) Other: Reports: Depression, Anxiety - Physical Assessment NPO Status Date: 05/13/21 NPO Status Time: 22:30 Vital Signs: BP 126/81 HR 55 RR 16 96% RA 97.0 Height: 1.83 m Weight: 111 kg ASA Class: 3 Mental Status: Alert & Oriented x3 Airway Class: Mallampati = 2 Dentition: Reports: Dentures Thyro-Mental Finger Breadths: 3 Mouth Opening Finger Breadths: 3 ROM/Head Extension: Full Lungs: Clear to Auscultation, Normal Respiratory Effort Cardiovascular: Regular Rate, Regular Rhythm, No Murmurs - Lab Values: Labs reviewed and okay to proceed - Imaging/EKG Impressions: EKG March 21, 2021 NSR with prolonged MS interval, RSR' in V1 or V2, RBBB, nonspecific ST-T abnormalities, lateral leads HR 59 Holter monitor 09/18/2019: normal See Cardiology note from Dr. Reyes - Allergies Allergies/Adverse Reactions: Allergies Allergy/AdvReac Type Severity Reaction Status Date / Time No Known Allergies Allergy Verified 05/13/21 11:13 - Blood Blood Available: No Product(s) Available: None - Anesthesia Plan Beta Brendan: Metoprolol Med Last Dose Date: 05/14/21 Med Last Dose Time: 07:30 - Acknowledgements Anesthesia Type Planned: MAC Pt an Appropriate Candidate for the Planned Anesthesia: Yes Alternatives and Risks of Anesthesia Discussed w Pt/Guardian: Yes Pt/Guardian Understands and Agrees with Anesthesia Plan: Yes PreAnesthesia Questionnaire HEENT History: Reports: Cataract, Impaired Vision Other HEENT History: wears glasses, has dentures Cardiovascular History: Reports: Heart Failure, High Cholesterol, Hypertension, [place] in "1970 or 1979's" per patient and ), SOB on Exertion Other Cardiovascular History: Atypical chest pain Respiratory History: Reports: Bronchitis, Recurrent, SOB Gastrointestinal History: Reports: GERD, GI Bleed, PUD Genitourinary History: Reports: Chronic Renal Insuffiency, Renal Calculus, Other (See Below) Other Genitourinary History: CKD III, acute kidney injury, atrophy of right kidney, renal insufficiency DISPATCH COORDINATOR History: Reports: None Musculoskeletal History: Reports: Fracture, Gout, Osteoarthritis Other Musculoskeletal History: knee strain, neck strain, left shoulder dislocation, muscle strain Neurological History: Reports: CVA, Neuropathy, Peripheral, Parkinson's, Seizure, Other (See Below) Other Neuro History: sensory motor neuropathy, closed head injury, vasovagal, autonomic dysfunction, history of edema of leg Psychiatric History: Reports: Addiction (history of addiction of ETOH) Endocrine/Metabolic History: Reports: Obesity/BMI 30+ Other Endocrine/Metabolic History: Family history of Type II diabetes. Hematologic History: Reports: Anemia Other Hematologic History: GI bleed Immunologic History: Reports: None Oncologic (Cancer) History: Reports: None Dermatologic History: Reports: None Other Dermatologic History: Chronic rash that "comes and goes" to bilateral feet - Infectious Disease History Infectious Disease History: Reports: Chicken Pox - Past Surgical History Head Surgeries/Procedures: Reports: None HEENT Surgical History: Reports: Cataract Surgery, Oral Surgery Cardiovascular Surgical History: Reports: None Respiratory Surgical History: Reports: None GI Surgical History: Reports: Cholecystectomy, Colonoscopy, EGD, Other (See Below) Female Surgical History: Reports: None Male Surgical History: Reports: None Endocrine Surgical History: Reports: None Neurological Surgical History: Reports: None Musculoskeletal Surgical History: Reports: Arthroscopic Knee Oncologic Surgical History: Reports: None Dermatological Surgical History: Reports: None Other Surgical History Comment: Exploratory abdomen surgery in 1969 - SUBSTANCE USE Tobacco Use Status *Q: Former Tobacco User Tobacco Use Within Last Twelve Months: Smokeless Tobacco, Snuff/Dip (No chewing tobacco or smokeless tobacco for two days) Second Hand Smoke Exposure: Yes Days Per Week of Alcohol Use: 0 Number of Drinks Per Day: 0 Total Drinks Per Week: 0 Recreational Drug Use History: No - HOME MEDS Home Medications: Home Meds allopurinoL [Allopurinol] 100 mg PO DAILY 07/15/16 [History] Aspirin [Ecotrin EC] 81 mg PO DAILY 05/11/18 [History] FLUoxetine HCl [Fluoxetine HCl] 40 mg PO DAILY 10/21/18 [History] Naltrexone 50 mg PO DAILY 10/21/18 [History] Carbidopa/Levodopa [Carbidopa-Levo 25-100 MG ODT] 1 tab PO TID 06/30/19 [History] Lacosamide [Vimpat] 150 mg PO BID 06/30/19 [History] Gabapentin [Neurontin] 300 mg PO TID 10/17/19 [History] Furosemide [Lasix] 20 mg PO BID 10/21/20 [History] levETIRAcetam [Keppra] 1,000 mg PO BID 11/19/20 [History] Ibuprofen 400 mg PO Q6H 05/13/21 [History] Metoprolol Tartrate [Lopressor] 12.5 mg PO BID 05/13/21 [History] Triamcinolone Acetonide [Triamcinolone Acetonide 0.1% Crm] 1 dose TOP BID PRN 05/13/21 [History] atorvaSTATin Calcium [Lipitor] 20 mg PO DAILY 05/13/21 [History] levETIRAcetam [Keppra XR] 500 mg PO QPM 05/13/21 [History] - CURRENT (IN HOUSE) MEDS Current Meds: Current Medications Albuterol (Albuterol 0.083% 2.5 Mg/3 Ml Neb Soln) 2.5 mg NEB ONETIME MARY Stop: 05/14/21 16:00 Lactated Ringer's (Ringers, Lactated) 1,000 mls @ 125 mls/hr IV ASDIRECTED MARY Stop: 05/14/21 23:00 Lidocaine/Sodium Bicarbonate (Lidocaine 1%/Sod Bicarbonate In Ns 8.4% 1 Ml Syringe) 0.25 ml IDERM ONETIME PRN PRN Reason: Prior to IV Start Stop: 05/14/21 23:00 Sodium Chloride (Sodium Chloride 0.9% 10 Ml Syringe) 10 ml FLUSH ASDIRECTED PRN PRN Reason: Keep Vein Open Stop: 05/14/21 23:00 Discontinued Medications Midazolam HCl (Midazolam 1 Mg/Ml 2 Ml Sdv) Confirm Administered Dose 2 mg .ROUTE .STK-MED ONE Stop: 05/14/21 08:59
[2021-05-14] MEDS ORDERED: Propofol 200 MG/20 ML SDV ONE ×2 (10:15→11:07)
--- NOTE | 2021-05-14 11:50 | PCM48HPAN ---
Post Anesthesia Note - EVALUATION WITHIN 48HRS OF ANESTHETIC Vital Signs in Normal Range: Yes Patient Participated in Evaluation: Yes Respiratory Function Stable: Yes Airway Patent: Yes Cardiovascular Function Stable: Yes Hydration Status Stable: Yes Pain Control Satisfactory: Yes Nausea and Vomiting Control Satisfactory: Yes Mental Status Recovered: Yes Vital Signs: Last Vital Signs Temp 36.1 C 05/14/21 09:15 Pulse 55 L 05/14/21 09:15 Resp 16 05/14/21 09:15 BP 126/81 05/14/21 09:15 Pulse Ox 96 05/14/21 09:15
--- NOTE | 2021-05-14 11:51 | PCM.OPNOTE ---
- General Post-Op/Procedure Note Date of Surgery/Procedure: 05/14/21 Operative Procedure(s): colonoscopy Findings: 1. Diverticulosis 2. Colon polyps Pre Op Diagnosis: Abnormal PET scan Post-Op Diagnosis: same Anesthesia Technique: MAC Primary Surgeon: Ayse Howe Anesthesia Provider: Valerie Newman Pathology: 1. Ileocecal valve polyp 2. Ascending colon polyp 3. Hepatic flexure polyp x2 4. Transverse colon polyp x4 5. Splenic flexure polyp x2 6. Descending colon polyp Fluid Replacement, Intraop: 700 Output, Urine Amount: 0 EBL in mLs: 0 Complications: none apparent Condition: Good
--- NOTE | 2021-05-14 11:57 | PCM.PRNOTE ---
- Free Text/Narrative Note: Operative Report Date of Surgery/Procedure: May 14, 2021 Operative Procedure: Colonoscopy Pre Op Diagnosis: Abnormal PET scan Post-Op Diagnosis: same Surgeon: Ayse Howe Anesthesia Technique: MAC Anesthesia Provider: Valerie Newman CRNA IV Fluid Replacement, Intraop: 700cc Output, Urine Amount: 0cc EBL : 0cc Findings: 1. Diverticulosis 2. Colon polyps Specimens: 1. Ileocecal valve polyp 2. Ascending colon polyp 3. Hepatic flexure polyp x2 4. Transverse colon polyp x4 5. Splenic flexure polyp x2 6. Descending colon polyp Indication: The patient is a 75 year-old gentleman who presented to the outpatient clinic requesting colonoscopy to evaluate an abnormal finding seen in the sigmoid colon on a recent PET scan. We discussed the procedure of a colonoscopy including the polypectomy and biopsy. Risks of bleeding and perforation were discussed, the patient understood and wished to proceed. Written and consent was obtained Description of the procedure: The patient was brought to the endoscopy suite and placed in the left lateral decubitus position. Appropriate monitors were applied. The patient was given MAC anesthesia. An anorectal examination was performed, revealing some external hemorrhoids and skin tags. The scope was placed into the rectum and advanced to cecum with moderate difficulty requiring external abdominal pressure. The patients cecum was entered, and the ileocecal valve and appendiceal orifice were identified and normal. At this point, the scope was withdrawn, paying careful attention to the mucosa. The patient had adequate bowel prep, allowing for visualization of polyps after washing and suctioning of the mucosa. A semi- pedunculated polyp was noted on the ileocecal valve, measuring approximately 1 cm. This was removed with a hot snare and the remaining small piece removed with the jumbo cold biopsy forceps. A flat 3 mm polyp was noted in the a scending colon and removed with a jumbo cold biopsy forceps. In the hepatic flexure there was a 11 mm flat polyp noted in a difficult position behind a fold. This was partially removed with a jumbo cold biopsy forceps, the remaining area was tattooed with an Karina ink submucosal tattoo. A 2 mm flat polyp was noted nearby in the hepatic flexure and removed with a jumbo cold biopsy forceps. 4 polyps ranging from 3 to 5 mm were noted in the transverse colon and removed with a jumbo cold biopsy forceps a very large semisessile polyp measuring 2-1/2 to 3 cm was noted in the splenic flexure. This was partially removed with a hot snare and jumbo cold biopsy forceps. Due to the large nature of the polyp and the positioning, it was somewhat difficult to remove. In addition, concern for perforation was noted after multiple attempts at removing the polyp. A large section was removed and sent to pathology. The area was then marked with an Karina ink tattoo. An additional 2-3mm flat polyp was seen in the splenic flexure and removed with a cold biopsy forceps. In the descending colon a 3 mm flat polyp was seen and removed with a jumbo cold biopsy forceps. In the rectum, the scope was retroflexed and no abnormalities were noted, except for some hemorrhoidal tissue. The scope was placed back in the lumen and the excess air was aspirated. The patient tolerated the procedure well. Complications: none apparent Condition: Good, transported to PACU in stable condition Ayse Howe MD General Surgery
[2021-05-14 14:26] VITALS: PULSE 55
[2021-05-14 14:27] VITALS: BP 128/95
== END 2021-05-14 14:17 | disposition home or self-care (01) ==
LOC: JD.SDS 09:00
PROVIDERS: ATTEND Surgery
DX: D12.2 Benign neoplasm of ascending colon (principal); D12.3 Benign neoplasm of transverse colon; D12.4 Benign neoplasm of descending colon; D12.0 Benign neoplasm of cecum; K57.30 Diverticulosis of large intestine without perforation or abscess without bleeding; K64.4 Residual hemorrhoidal skin tags; I11.0 Hypertensive heart disease with heart failure; I50.9 Heart failure, unspecified; I25.2 Old myocardial infarction; E66.9 Obesity, unspecified; Z86.73 Personal history of transient ischemic attack (TIA), and cerebral infarction without residual deficits; Z90.49 Acquired absence of other specified parts of digestive tract; Z79.82 Long term (current) use of aspirin; Z79.899 Other long term (current) drug therapy; Z87.891 Personal history of nicotine dependence
CPT/HCPCS: 00811; 88305; 94640; J2250; J2704; J7120

== ENCOUNTER 2021-08-13 07:46 | Day surgery (SDC) | payer MEDICARE, BC ==
--- NOTE | 2021-08-12 10:12 | PCM.PREANE ---
Preanesthetic Assessment - Procedure Proposed Procedure: Colonoscopy - Anesthesia/Transfusion/Family Hx Anesthesia History: Prior Anesthesia Without Reaction Family History of Anesthesia Reaction: No Transfusion History: Prior Transfusion Without Reaction Intubation History: Unknown - Review of Systems Pulmonary: No Symptoms (chewing tobacco:quit 2018), Shortness of Breath (when climbing stairs.) Cardiovascular: No Symptoms (HTN, Chronic diastolic CHF, elevated cholesterol/CO in 1970s or s per .), Palpitations (history of palpitations in the past few years.), Dyspnea on Exertion, Edema (slight noted today.), Lightheadedness (positional changes) Gastrointestinal: No Symptoms (GERD), Difficulty Swallowing (dysphagia noted with CVA but tolerable with portion control and increased chewing.) Neurological: No Symptoms (history of CVA 2002/ autonomic dysfunction(vasovagal symptoms)), Numbness (sensory motor dysfuntion: neuropathy bilateral feet, toes, and fingers), Seizure (Seizure: April 19, 2021 On Keppra: 0645 08/13/21), Tremors ((parkinson's)), Gait Disturbance (uses cane to walk) Other: Reports: None (CKD: stage 3, GFR: 30-59), Easy Bruising, Depression, Anxiety - Physical Assessment NPO Status Date: 08/12/21 NPO Status Time: 23:00 Vital Signs: HR: 66 Sat: 97% Temp: 97.7 B/P: 126/78 Resp: 20 Height: 1.83 m Weight: 114 kg ASA Class: 3 Mental Status: Alert & Oriented x3 Airway Class: Mallampati = 2 Dentition: Reports: Dentures (upper and lower dentures) Thyro-Mental Finger Breadths: 3 Mouth Opening Finger Breadths: 3 ROM/Head Extension: Full Lungs: Clear to Auscultation, Normal Respiratory Effort Cardiovascular: Regular Rate, Regular Rhythm, No Murmurs - Lab Values: All labs reviewed and noted and within acceptable ranges to proceed with scheduled procedure. - Imaging/EKG Impressions: EKG: SR rate=59, prolonged AIYANA, nonspecific ST-T abnormalities lateral leads - Allergies Allergies/Adverse Reactions: Allergies Allergy/AdvReac Type Severity Reaction Status Date / Time No Known Allergies Allergy Verified 08/12/21 16:04 - Anesthesia Plan Pre-Op Medication Ordered: Beta Brendan Beta Brendan: Metoprolol Med Last Dose Date: 08/13/21 Med Last Dose Time: 06:45 - Acknowledgements Anesthesia Type Planned: MAC Pt an Appropriate Candidate for the Planned Anesthesia: Yes Alternatives and Risks of Anesthesia Discussed w Pt/Guardian: Yes Pt/Guardian Understands and Agrees with Anesthesia Plan: Yes PreAnesthesia Questionnaire HEENT History: Reports: Cataract, Impaired Vision Other HEENT History: wears glasses, has dentures Cardiovascular History: Reports: Heart Failure, High Cholesterol, Hypertension, CO (CO in "1969 or s" per patient and ), SOB on Exertion Other Cardiovascular History: Atypical chest pain Respiratory History: Reports: Bronchitis, Recurrent, SOB Gastrointestinal History: Reports: GERD, GI Bleed, PUD Genitourinary History: Reports: Chronic Renal Insuffiency, Renal Calculus, Other (See Below) Other Genitourinary History: CKD III, acute kidney injury, atrophy of right kidney, renal insufficiency [employer]SIDE [employer]ACH[employer]OR History: Reports: None Musculoskeletal History: Reports: Fracture, Gout, Osteoarthritis Other Musculoskeletal History: knee strain, neck strain, left shoulder dislocation, muscle strain Neurological History: Reports: CVA, Neuropathy, Peripheral, Parkinson's, Seizure, Other (See Below) Other Neuro History: sensory motor neuropathy, closed head injury, vasovagal, autonomic dysfunction, history of edema of leg Psychiatric History: Reports: Addiction (history of addiction of ETOH) Endocrine/Metabolic History: Reports: Obesity/BMI 30+ Other Endocrine/Metabolic History: Family history of Type II diabetes. Hematologic History: Reports: Anemia Other Hematologic History: GI bleed Immunologic History: Reports: None Oncologic (Cancer) History: Reports: None Dermatologic History: Reports: None Other Dermatologic History: Chronic rash that "comes and goes" to bilateral feet - Infectious Disease History Infectious Disease History: Reports: Chicken Pox - Past Surgical History Other Surgical History Comment: Exploratory abdomen surgery in 1969 - HOME MEDS Home Medications: Home Meds allopurinoL [Allopurinol] 100 mg PO DAILY 07/15/16 [History] Aspirin [Ecotrin EC] 81 mg PO DAILY 05/11/18 [History] FLUoxetine HCl [Fluoxetine HCl] 40 mg PO DAILY 10/21/18 [History] Naltrexone 50 mg PO DAILY 10/21/18 [History] Lacosamide [Vimpat] 150 mg PO BID 06/30/19 [History] Gabapentin [Neurontin] 300 mg PO TID 10/17/19 [History] Furosemide [Lasix] 20 mg PO MOWEFR 10/21/20 [History] levETIRAcetam [Keppra] 1,000 mg PO BID 11/19/20 [History] Metoprolol Tartrate [Lopressor] 12.5 mg PO BID 05/13/21 [History] Triamcinolone Acetonide [Triamcinolone Acetonide 0.1% Crm] 1 dose TOP BID PRN 05/13/21 [History] atorvaSTATin Calcium [Lipitor] 20 mg PO DAILY 05/13/21 [History] Ibuprofen 400 mg PO TID PRN 08/12/21 [History] Metoprolol Tartrate 12.5 mg PO BID 08/12/21 [History] - CURRENT (IN HOUSE) MEDS Current Meds: Current Medications Lactated Ringer's (Ringers, Lactated) 1,000 mls @ 125 mls/hr IV ASDIRECTED MARY Stop: 08/13/21 23:00 Lidocaine/Sodium Bicarbonate (Lidocaine 1%/Sod Bicarbonate In Ns 8.4% 1 Ml Syringe) 0.25 ml IDERM ONETIME PRN PRN Reason: Prior to IV Start Stop: 08/13/21 18:00 Sodium Chloride (Sodium Chloride 0.9% 10 Ml Syringe) 10 ml FLUSH ASDIRECTED PRN PRN Reason: Keep Vein Open Stop: 08/13/21 18:00
[~2021-08-13 07:46] MED LIST changes: -Albuterol 0.083% 2.5 MG/3 ML Neb Soln NEB SCH; -Midazolam 1 MG/ML 2 ML SDV ONE
[2021-08-13] MEDS ORDERED: fentaNYL 100 MCG/2 ML SDV ONE (09:02)
[2021-08-13] MEDS ORDERED: Propofol 200 MG/20 ML SDV ONE ×3 (09:02→09:43)
[2021-08-13] MEDS ORDERED: Lidocaine 1% 4 ML ONE (09:04)
--- NOTE | 2021-08-13 10:01 | PCM.OPNOTE ---
- General Post-Op/Procedure Note Date of Surgery/Procedure: 08/13/21 Operative Procedure(s): colonoscopy Findings: 1. colon polyps 2. diverticulosis 3. abnormal ileocecal valve tissue 4. Abnormal ascending colon mucosa Pre Op Diagnosis: history of adenomatous colon polyp partially removed Post-Op Diagnosis: same Anesthesia Technique: MAC Primary Surgeon: Ayse Howe Anesthesia Provider: Inderjit Vasquez Pathology: 1. Ileocecal valve biopsy 2. Ascending colon biopsy 3. hepatic flexure polyps x4 4. Transverse colon polyp 5. Descending colon partial polypectomy Fluid Replacement, Intraop: 900 Complications: none apparent Condition: Good
--- NOTE | 2021-08-13 10:10 | PCM48HPAN ---
Post Anesthesia Note - EVALUATION WITHIN 48HRS OF ANESTHETIC Vital Signs in Normal Range: Yes Patient Participated in Evaluation: Yes Respiratory Function Stable: Yes Airway Patent: Yes Cardiovascular Function Stable: Yes Hydration Status Stable: Yes Pain Control Satisfactory: Yes Nausea and Vomiting Control Satisfactory: Yes Mental Status Recovered: Yes Vital Signs: Last Vital Signs Temp 36.3 C 08/13/21 08:10 Pulse 66 08/13/21 08:10 Resp 20 08/13/21 08:10 BP 126/78 08/13/21 08:10 Pulse Ox 97 08/13/21 08:10 - COMMENTS/OBSERVATIONS Free Text/Narrative:: no anesthesia complications noted
--- NOTE | 2021-08-13 10:31 | PCM.PRNOTE ---
- Free Text/Narrative Note: Operative Report Date of Surgery/Procedure: August 13, 2021 Operative Procedure: Colonoscopy to cecum with biopsy and polypectomy Pre Op Diagnosis: history of adenomatous colon polyp partially removed Post-Op Diagnosis: same Surgeon: Ayse Howe MD Anesthesia Technique: MAC Anesthesia Provider: Inderjit Vasquez CRNA IV Fluid Replacement, Intraop: 900cc Output, Urine Amount: 0cc EBL : 0cc Findings: 1. colon polyps 2. diverticulosis 3. abnormal ileocecal valve tissue 4. Abnormal ascending colon mucosa Specimens: 1. Ileocecal valve biopsy 2. Ascending colon biopsy 3. hepatic flexure polyps x4 4. Transverse colon polyp 5. Descending colon partial polypectomy Indication: The patient is a 76 year-old gentleman who presented to the outpatient clinic for follow up colonoscopy. The patient has a history of colon polyps that were partially removed. We discussed the procedure of a colonoscopy including the polypectomy and biopsy. Risks of bleeding and perforation were discussed, the patient understood and wished to proceed. Written and consent was obtained Description of the procedure: The patient was brought to the endoscopy suite and placed in the left lateral decubitus position. Appropriate monitors were applied. The patient was given MAC anesthesia. An anorectal examination was performed, revealing some external hemorrhoids. The scope was placed into the rectum and advanced to cecum with moderate difficulty requiring external abdominal pressure. The patients cecum was entered, and the ileocecal valve and appendiceal orifice were identified. There was an erythematous lesion on the ileocecal valve that was biopsied with a jumbo cold biopsy forceps. At this point, the scope was withdrawn, paying careful attention to the mucosa. The patient had a good bowel prep, allowing for visualization of 90% of the mucosa. Abnormal tissue was noted in the ascending colon, and this was biopsied with a jumbo cold biopsy forceps. There were 4 semi-sessile polyps in the hepatic flexure ranging from 12mm to 4mm. These were removed in piecemeal fashion with a jumbo cold biopsy forceps. A 3mm flat polyp was removed with a jumbo cold biopsy forceps in the transverse colon. The area in the splenic flexure was viewed and no polyp was found in the area of concern. An additional 7mm semi-pendunculated polyp was found in the descending colon, but was only partially removed with a jumbo cold biopsy forceps due to technical difficulty with the placement around a fold. Some scattered small mouthed diverticula were seen in the descending and sigmoid colon. In the rectum, the scope was retroflexed and no abnormalities were noted, except for some hemorrhoidal tissue. The scope was placed back in the lumen and the excess air was aspirated. The patient tolerated the procedure well. Complications: none apparent Condition: Good, transported to PACU in stable condition Ayse Howe MD General Surgery
[2021-08-13 10:57] VITALS: PULSE 57
[2021-08-13 11:46] VITALS: BP 140/78
== END 2021-08-13 11:38 | disposition home or self-care (01) ==
LOC: JD.SDS 07:46
PROVIDERS: ATTEND Surgery
DX: Z12.11 Encounter for screening for malignant neoplasm of colon (principal); D12.3 Benign neoplasm of transverse colon; D12.4 Benign neoplasm of descending colon; K64.9 Unspecified hemorrhoids; I50.32 Chronic diastolic (congestive) heart failure; I25.2 Old myocardial infarction; E66.9 Obesity, unspecified; G62.9 Polyneuropathy, unspecified; N18.30 Chronic kidney disease, stage 3 unspecified; I13.0 Hypertensive heart and chronic kidney disease with heart failure and stage 1 through stage 4 chronic kidney disease, or unspecified chronic kidney disease; Z98.890 Other specified postprocedural states; Z79.899 Other long term (current) drug therapy; Z87.891 Personal history of nicotine dependence; Z86.73 Personal history of transient ischemic attack (TIA), and cerebral infarction without residual deficits
CPT/HCPCS: 45380; J2704; J3010; J7120; 00812; 88305; 99100

== ENCOUNTER 2022-04-22 06:53 | Day surgery (SDC) | payer MEDICARE, BC ==
[~2022-04-22 06:53] MED LIST changes: +Sodium Chloride 0.9% 10 ML Syringe FLUSH SCH
[2022-04-22] MEDS ORDERED: Propofol 200 MG/20 ML SDV ONE (07:30)
[2022-04-22] MEDS ORDERED: Lidocaine 1% 4 ML ONE (07:31)
[2022-04-22] MEDS ORDERED: Ketamine 500 mg/10 ML MDV ONE (08:18)
[2022-04-22 10:54] VITALS: BP 147/94; PULSE 52
== END 2022-04-22 11:04 | disposition home or self-care (01) ==
LOC: JD.SDS 06:53
PROVIDERS: ATTEND Surgery
DX: D12.3 Benign neoplasm of transverse colon (principal); D12.4 Benign neoplasm of descending colon; K21.00 Gastro-esophageal reflux disease with esophagitis, without bleeding; K22.89 Other specified disease of esophagus; K57.30 Diverticulosis of large intestine without perforation or abscess without bleeding; K64.8 Other hemorrhoids; K29.70 Gastritis, unspecified, without bleeding; I50.32 Chronic diastolic (congestive) heart failure; I25.2 Old myocardial infarction; E66.9 Obesity, unspecified; E78.5 Hyperlipidemia, unspecified; N18.9 Chronic kidney disease, unspecified; I13.0 Hypertensive heart and chronic kidney disease with heart failure and stage 1 through stage 4 chronic kidney disease, or unspecified chronic kidney disease; G62.9 Polyneuropathy, unspecified; Z90.49 Acquired absence of other specified parts of digestive tract; Z79.899 Other long term (current) drug therapy; Z86.73 Personal history of transient ischemic attack (TIA), and cerebral infarction without residual deficits; Z87.891 Personal history of nicotine dependence; Z68.34 Body mass index [BMI] 34.0-34.9, adult; Z86.16 Personal history of COVID-19
CPT/HCPCS: 43239; 45380; J2704; J3490; J7120

== ENCOUNTER 2024-01-01 14:44 | Emergency (ER) | payer MEDICARE, BC ==
[2024-01-01] MEDS: Sodium Chloride 0.9% 1,000 ML IV ONE (15:20)
[2024-01-01 15:28] LABS: BASOPHILS PERCENT AUTO 0.3 % (0.0-1.0); EOSINOPHILS ABSOLUTE AUTO 0.2 K/mm3 (0.0-0.4); EOSINOPHILS PERCENT AUTO 2.2 % (0.0-6.0); HEMATOCRIT 41.8 % (42.0-52.0); HEMOGLOBIN 14.3 gm/dl (14.0-18.0); IMMATURE GRAN ABSOLUTE AUTO 0.02 K/mm3 (0.00-0.05); IMMATURE GRAN PERCENT AUTO 0.3 % (0.0-0.4); LYMPHOCYTES ABSOLUTE AUTO 1.7 K/mm3 (1.0-4.8); MEAN CORPUSCULAR HEMOGLOBIN 31.8 pg (28.0-32.0); MEAN CORPUSCULAR HGB CONC 34.2 g/dl (32.0-36.0); MEAN CORPUSCULAR VOLUME 92.9 fl (83.0-99.0); MEAN PLATELET VOLUME 10.5 fl (9.4-12.4); MONOCYTES ABSOLUTE AUTO 0.6 K/mm3 (0.0-0.8); MONOCYTES PERCENT AUTO 8.4 % (0.0-8.0); NEUTROPHILS ABSOLUTE AUTO 4.3 K/mm3 (1.8-7.7); NEUTROPHILS PERCENT AUTO 63.8 % (41.0-71.0); PLATELET COUNT,PLT 167 K/mm3 (150-400); WHITE BLOOD CELL COUNT,WBC 6.69 K/mm3 (3.9-11.3)
[2024-01-01] MEDS ORDERED: Sodium Chloride 0.9% 250 ML IV SCH (15:30)
[2024-01-01 15:35] LABS: INR 1.08; PROTHROMBIN TIME 11.5 SECONDS (9.7-12.0)
[2024-01-01 15:36] LABS: PTT,PARTIAL THROMBOPLSTIN TIME 26.5 SECONDS (21.7-31.4)
[2024-01-01] MEDS: Sodium Chloride 0.9% 250 ML IV ONE (15:37)
[2024-01-01] MEDS: Aspirin 81 MG Tab.Chew PO ONE (15:42)
[2024-01-01 15:48] LABS: A/G RATIO 0.9 (1-2); ALBUMIN 3.5 g/dl (3.4-5.0); ANION GAP 16.9 (5-15); BILIRUBIN TOTAL 0.9 mg/dL (0.2-1.0); BUN/CREATININE RATIO 12.2 (14-18); CREATININE 1.8 mg/dL (0.7-1.3); EST CRCL DRUG DOSING (CG) 38.32 mL/min; POTASSIUM,K 3.9 mEq/L (3.5-5.1); PROTEIN TOTAL,TP 7.3 g/dl (6.4-8.2)
[2024-01-01 20:25] VITALS: BP 144/75; PULSE 58
== END 2024-01-01 19:40 ==
LOC: JD.ED 14:44
DX: R07.2 Precordial pain (principal); I25.10 Atherosclerotic heart disease of native coronary artery without angina pectoris; I13.0 Hypertensive heart and chronic kidney disease with heart failure and stage 1 through stage 4 chronic kidney disease, or unspecified chronic kidney disease; I50.9 Heart failure, unspecified; N18.30 Chronic kidney disease, stage 3 unspecified; I25.2 Old myocardial infarction; Z86.73 Personal history of transient ischemic attack (TIA), and cerebral infarction without residual deficits; K21.9 Gastro-esophageal reflux disease without esophagitis; E78.00 Pure hypercholesterolemia, unspecified; Z86.16 Personal history of COVID-19; Z68.37 Body mass index [BMI] 37.0-37.9, adult
CPT/HCPCS: 36415; 70450; 71045; 80053; 83880; 84484; 85025; 85610; 85730; 93005; 99285; A9270; J7030; 93010

== ENCOUNTER 2024-03-03 15:29 | Emergency (ER) | payer MEDICARE, BC ==
[2024-03-03 16:05] LABS: BASOPHILS PERCENT AUTO 0.3 % (0.0-1.0); EOSINOPHILS ABSOLUTE AUTO 0.3 K/mm3 (0.0-0.4); EOSINOPHILS PERCENT AUTO 4.8 % (0.0-6.0); HEMATOCRIT 39.3 % (42.0-52.0); IMMATURE GRAN ABSOLUTE AUTO 0.01 K/mm3 (0.00-0.05); IMMATURE GRAN PERCENT AUTO 0.2 % (0.0-0.4); LYMPHOCYTES ABSOLUTE AUTO 1.7 K/mm3 (1.0-4.8); LYMPHOCYTES PERCENT AUTO 29.3 % (24.0-44.0); MEAN CORPUSCULAR HEMOGLOBIN 30.7 pg (28.0-32.0); MEAN CORPUSCULAR HGB CONC 33.1 g/dl (32.0-36.0); MEAN CORPUSCULAR VOLUME 92.7 fl (83.0-99.0); MONOCYTES ABSOLUTE AUTO 0.5 K/mm3 (0.0-0.8); MONOCYTES PERCENT AUTO 8.5 % (0.0-8.0); NEUTROPHILS ABSOLUTE AUTO 3.3 K/mm3 (1.8-7.7); NEUTROPHILS PERCENT AUTO 56.9 % (41.0-71.0); PLATELET COUNT,PLT 129 K/mm3 (150-400); RED BLOOD CELL COUNT 4.24 M/mm3 (4.52-5.90); WHITE BLOOD CELL COUNT,WBC 5.87 K/mm3 (3.9-11.3)
[2024-03-03 16:31] LABS: A/G RATIO 0.9 (1-2); ALBUMIN 3.4 g/dl (3.4-5.0); ANION GAP 12.3 (5-15); BILIRUBIN TOTAL 0.8 mg/dL (0.2-1.0); BUN/CREATININE RATIO 12.4 (14-18); CALCIUM 8.9 mg/dL (8.5-10.1); CREATININE 1.7 mg/dL (0.7-1.3); EST CRCL DRUG DOSING (CG) 40.58 mL/min; POTASSIUM,K 4.3 mEq/L (3.5-5.1); PROTEIN TOTAL,TP 7.2 g/dl (6.4-8.2)
[2024-03-03] MEDS: Acetaminophen 325 MG Tab PO ONE (17:32)
[2024-03-03] MEDS: Iopamidol 755 Mg/ML 100 ML Bottle IVPUSH ONE (18:06)
[2024-03-03] MEDS: Sodium Chloride 0.9% 100 ML IV SCH (18:06)
[2024-03-03 19:34] VITALS: BP 136/86; PULSE 60
== END 2024-03-03 19:45 | disposition home or self-care (01) ==
LOC: JD.ED 15:29
DX: R06.02 Shortness of breath (principal); R55 Syncope and collapse; I12.9 Hypertensive chronic kidney disease with stage 1 through stage 4 chronic kidney disease, or unspecified chronic kidney disease; I50.9 Heart failure, unspecified; N18.9 Chronic kidney disease, unspecified; I25.2 Old myocardial infarction; E78.00 Pure hypercholesterolemia, unspecified; E66.9 Obesity, unspecified; Z79.899 Other long term (current) drug therapy; Z86.16 Personal history of COVID-19; Z90.49 Acquired absence of other specified parts of digestive tract; Z68.36 Body mass index [BMI] 36.0-36.9, adult
CPT/HCPCS: 36415; 70450; 71045; 71275; 72125; 73030; 80053; 83880; 84484; 85025; 93005; 99285; A9270; J3490; Q9967; 93010; 99284

== ENCOUNTER 2024-03-21 11:36 | Emergency (ER) | payer MEDICARE, BC ==
[2024-03-21 11:53] VITALS: PULSE 68
[2024-03-21 12:23] LABS: BASOPHILS PERCENT AUTO 0.3 % (0.0-1.0); EOSINOPHILS ABSOLUTE AUTO 0.2 K/mm3 (0.0-0.4); EOSINOPHILS PERCENT AUTO 2.5 % (0.0-6.0); HEMATOCRIT 35.1 % (42.0-52.0); HEMOGLOBIN 11.8 gm/dl (14.0-18.0); IMMATURE GRAN ABSOLUTE AUTO 0.02 K/mm3 (0.00-0.05); IMMATURE GRAN PERCENT AUTO 0.3 % (0.0-0.4); LYMPHOCYTES ABSOLUTE AUTO 1.7 K/mm3 (1.0-4.8); LYMPHOCYTES PERCENT AUTO 26.2 % (24.0-44.0); MEAN CORPUSCULAR HEMOGLOBIN 31.4 pg (28.0-32.0); MEAN CORPUSCULAR HGB CONC 33.6 g/dl (32.0-36.0); MEAN CORPUSCULAR VOLUME 93.4 fl (83.0-99.0); MEAN PLATELET VOLUME 11.1 fl (9.4-12.4); MONOCYTES ABSOLUTE AUTO 0.6 K/mm3 (0.0-0.8); MONOCYTES PERCENT AUTO 9.2 % (0.0-8.0); NEUTROPHILS ABSOLUTE AUTO 3.9 K/mm3 (1.8-7.7); NEUTROPHILS PERCENT AUTO 61.5 % (41.0-71.0); PLATELET COUNT,PLT 166 K/mm3 (150-400); RED BLOOD CELL COUNT 3.76 M/mm3 (4.52-5.90)
[2024-03-21] MEDS: Aspirin 81 MG Tab.Chew PO ONE (12:23)
[2024-03-21 12:37] LABS: INR 1.07; PROTHROMBIN TIME 11.4 SECONDS (9.7-12.0)
[2024-03-21 12:39] LABS: PTT,PARTIAL THROMBOPLSTIN TIME 22.8 SECONDS (21.7-31.4)
[2024-03-21 12:42] LABS: A/G RATIO 0.9 (1-2); ALBUMIN 3.3 g/dl (3.4-5.0); ANION GAP 15.4 (5-15); BILIRUBIN TOTAL 0.8 mg/dL (0.2-1.0); BUN/CREATININE RATIO 23.5 (14-18); CALCIUM 9.3 mg/dL (8.5-10.1); EST CRCL DRUG DOSING (CG) 34.49 mL/min; MAGNESIUM 1.9 mg/dL (1.8-2.4); POTASSIUM,K 4.4 mEq/L (3.5-5.1)
[2024-03-21 13:06] LABS: D-DIMER QUANTITATIVE 14.06 mg/L (0.19-0.50)
[2024-03-21] MEDS: Sodium Chloride 0.9% 1,000 ML IV SCH (13:37)
[2024-03-21] MEDS: Sodium Chloride 0.9% 10 ML Syringe FLUSH PRN (13:51)
[2024-03-21] MEDS: Iopamidol 755 Mg/ML 100 ML Bottle IVPUSH ONE (13:51)
[2024-03-21] MEDS ORDERED: Sodium Chloride 0.9% 100 ML IV SCH (14:00)
[2024-03-21 15:07] VITALS: BP 111/70
== END 2024-03-21 17:00 | disposition home or self-care (01) ==
LOC: JD.ED 11:36
DX: R42 Dizziness and giddiness (principal); R07.9 Chest pain, unspecified; R06.02 Shortness of breath; I13.0 Hypertensive heart and chronic kidney disease with heart failure and stage 1 through stage 4 chronic kidney disease, or unspecified chronic kidney disease; I50.9 Heart failure, unspecified; N18.9 Chronic kidney disease, unspecified; I25.2 Old myocardial infarction; K21.9 Gastro-esophageal reflux disease without esophagitis; E78.00 Pure hypercholesterolemia, unspecified; E66.9 Obesity, unspecified; Z79.82 Long term (current) use of aspirin; Z79.899 Other long term (current) drug therapy; Z90.49 Acquired absence of other specified parts of digestive tract; Z87.891 Personal history of nicotine dependence; Z68.37 Body mass index [BMI] 37.0-37.9, adult
CPT/HCPCS: 36415; 71045; 71275; 80053; 83735; 83880; 84484; 85025; 85379; 85610; 85730; 93005; 96360; 96361; 99285; A9270; J3490; J7030; Q9967; 93010; 99284

== ENCOUNTER 2024-03-21 22:43 | Inpatient (IN) | payer MEDICARE, BC ==
[2024-03-21 23:00] LABS: BASOPHILS PERCENT AUTO 0.3 % (0.0-1.0); EOSINOPHILS ABSOLUTE AUTO 0.2 K/mm3 (0.0-0.4); EOSINOPHILS PERCENT AUTO 2.2 % (0.0-6.0); HEMATOCRIT 34.3 % (42.0-52.0); HEMOGLOBIN 11.4 gm/dl (14.0-18.0); IMMATURE GRAN ABSOLUTE AUTO 0.03 K/mm3 (0.00-0.05); IMMATURE GRAN PERCENT AUTO 0.3 % (0.0-0.4); LYMPHOCYTES PERCENT AUTO 22.2 % (24.0-44.0); MEAN CORPUSCULAR HEMOGLOBIN 31.4 pg (28.0-32.0); MEAN CORPUSCULAR HGB CONC 33.2 g/dl (32.0-36.0); MEAN CORPUSCULAR VOLUME 94.5 fl (83.0-99.0); MEAN PLATELET VOLUME 10.7 fl (9.4-12.4); MONOCYTES ABSOLUTE AUTO 0.7 K/mm3 (0.0-0.8); MONOCYTES PERCENT AUTO 7.5 % (0.0-8.0); NEUTROPHILS ABSOLUTE AUTO 6.2 K/mm3 (1.8-7.7); NEUTROPHILS PERCENT AUTO 67.5 % (41.0-71.0); PLATELET COUNT,PLT 153 K/mm3 (150-400); RED BLOOD CELL COUNT 3.63 M/mm3 (4.52-5.90); WHITE BLOOD CELL COUNT,WBC 9.17 K/mm3 (3.9-11.3)
[2024-03-21] MEDS: Sodium Chloride 0.9% 500 ML IV ONE (23:21)
[2024-03-21 23:31] LABS: A/G RATIO 0.9 (1-2); ALBUMIN 3.3 g/dl (3.4-5.0); ANION GAP 16.2 (5-15); BILIRUBIN TOTAL 0.8 mg/dL (0.2-1.0); BUN/CREATININE RATIO 24.3 (14-18); CALCIUM 9.2 mg/dL (8.5-10.1); CREATININE 2.1 mg/dL (0.7-1.3); EST CRCL DRUG DOSING (CG) 27.98 mL/min; POTASSIUM,K 4.2 mEq/L (3.5-5.1)
[2024-03-22] MEDS: Sodium Chloride 0.9% 1,000 ML IV SCH (09:33)
[2024-03-22 10:13] LABS: A/G RATIO 0.9 (1-2); ALBUMIN 3.3 g/dl (3.4-5.0); ANION GAP 15.1 (5-15); BILIRUBIN TOTAL 0.9 mg/dL (0.2-1.0); BUN/CREATININE RATIO 26.5 (14-18); CALCIUM 8.9 mg/dL (8.5-10.1); EST CRCL DRUG DOSING (CG) 29.38 mL/min; POTASSIUM,K 4.1 mEq/L (3.5-5.1)
[2024-03-22] MEDS: Pantoprazole 40 MG Vial IVPUSH ONE (10:21)
[2024-03-22 10:43] LABS: BASOPHILS PERCENT AUTO 0.3 % (0.0-1.0); EOSINOPHILS ABSOLUTE AUTO 0.6 K/mm3 (0.0-0.4); EOSINOPHILS PERCENT AUTO 6.5 % (0.0-6.0); HEMATOCRIT 33.1 % (42.0-52.0); HEMOGLOBIN 10.9 gm/dl (14.0-18.0); IMMATURE GRAN ABSOLUTE AUTO 0.02 K/mm3 (0.00-0.05); IMMATURE GRAN PERCENT AUTO 0.2 % (0.0-0.4); LYMPHOCYTES ABSOLUTE AUTO 1.4 K/mm3 (1.0-4.8); MEAN CORPUSCULAR HEMOGLOBIN 31.3 pg (28.0-32.0); MEAN CORPUSCULAR HGB CONC 32.9 g/dl (32.0-36.0); MEAN CORPUSCULAR VOLUME 95.1 fl (83.0-99.0); MEAN PLATELET VOLUME 11.4 fl (9.4-12.4); MONOCYTES ABSOLUTE AUTO 0.8 K/mm3 (0.0-0.8); NEUTROPHILS ABSOLUTE AUTO 5.9 K/mm3 (1.8-7.7); PLATELET COUNT,PLT 148 K/mm3 (150-400); RED BLOOD CELL COUNT 3.48 M/mm3 (4.52-5.90); WHITE BLOOD CELL COUNT,WBC 8.65 K/mm3 (3.9-11.3)
[2024-03-22] MEDS: Midodrine 5 MG Tab PO ONE (10:57)
[2024-03-22] MEDS ORDERED: Triamcinolone Acetonide 0.1% Crm 15 GM Tube TOP PRN (11:57)
[2024-03-22 12:30] LABS: TSH 2.587 uIU/mL (0.358-3.74)
[2024-03-22] MEDS: levETIRAcetam 500 MG Tab PO ONE (12:50)
[2024-03-22] MEDS: Gabapentin 300 MG Cap PO SCH (14:49)
[2024-03-22] MEDS: Furosemide 20 MG Tab PO SCH (14:51)
[2024-03-22] MEDS: Gabapentin 300 MG Cap PO ONE (15:31)
[2024-03-22] MEDS ORDERED: Midodrine 5 MG Tab PO SCH (17:00)
[2024-03-22] MEDS: Lacosamide 100 MG Tab PO SCH (20:10)
[2024-03-22] MEDS: levETIRAcetam 500 MG Tab PO SCH (20:10)
[2024-03-23 05:53] LABS: BASOPHILS PERCENT AUTO 0.4 % (0.0-1.0); EOSINOPHILS ABSOLUTE AUTO 0.4 K/mm3 (0.0-0.4); EOSINOPHILS PERCENT AUTO 5.7 % (0.0-6.0); HEMOGLOBIN 9.1 gm/dl (14.0-18.0); IMMATURE GRAN ABSOLUTE AUTO 0.02 K/mm3 (0.00-0.05); IMMATURE GRAN PERCENT AUTO 0.3 % (0.0-0.4); LYMPHOCYTES ABSOLUTE AUTO 1.4 K/mm3 (1.0-4.8); LYMPHOCYTES PERCENT AUTO 19.8 % (24.0-44.0); MEAN CORPUSCULAR HEMOGLOBIN 31.5 pg (28.0-32.0); MEAN CORPUSCULAR HGB CONC 33.7 g/dl (32.0-36.0); MEAN CORPUSCULAR VOLUME 93.4 fl (83.0-99.0); MEAN PLATELET VOLUME 11.3 fl (9.4-12.4); MONOCYTES ABSOLUTE AUTO 0.6 K/mm3 (0.0-0.8); MONOCYTES PERCENT AUTO 9.3 % (0.0-8.0); NEUTROPHILS ABSOLUTE AUTO 4.4 K/mm3 (1.8-7.7); NEUTROPHILS PERCENT AUTO 64.5 % (41.0-71.0); PLATELET COUNT,PLT 126 K/mm3 (150-400); RED BLOOD CELL COUNT 2.89 M/mm3 (4.52-5.90); WHITE BLOOD CELL COUNT,WBC 6.88 K/mm3 (3.9-11.3)
[2024-03-23 05:58] LABS: BUN/CREATININE RATIO 41.4 (14-18); CALCIUM 8.4 mg/dL (8.5-10.1); CREATININE 1.4 mg/dL (0.7-1.3); EST CRCL DRUG DOSING (CG) 49.27 mL/min
[2024-03-23] MEDS: Naltrexone 50 MG Tab PO SCH (08:22)
[2024-03-23] MEDS: atorvaSTATin 20 MG Tab PO SCH (08:22)
[2024-03-23] MEDS: Pantoprazole 40 MG Tab.CR PO SCH (08:22)
[2024-03-23] MEDS: FLUoxetine 20 MG Cap PO SCH (08:22)
[2024-03-23] MEDS: Aspirin 81 MG Tab.EC PO SCH (08:22)
[2024-03-23] MEDS ORDERED: Allopurinol 100 MG Tab PO SCH (09:00)
[2024-03-23] MEDS ORDERED: Tamsulosin 0.4 MG Cap.ER PO SCH (09:00)
[2024-03-23 12:58] LABS: HEMATOCRIT 24.6 % (42.0-52.0); HEMOGLOBIN 8.3 gm/dl (14.0-18.0)
[2024-03-23 13:57] LABS: FOLIC ACID 17.1 ng/mL (8.6-58.9)
[2024-03-23] MEDS: Carvedilol 3.125 MG Tab PO SCH (14:08)
[2024-03-23 17:00] LABS: HEMATOCRIT 24.4 % (42.0-52.0); HEMOGLOBIN 8.2 gm/dl (14.0-18.0)
[2024-03-23 19:02] LABS: APPEARANCE,URINE CLEAR (Clear); BILIRUBIN,URINE NEGATIVE (Negative); COLOR,URINE YELLOW (Yellow); GLUCOSE,URINE NEGATIVE (Negative); KETONES,URINE NEGATIVE (Negative); LEUKOCYTE ESTERASE,URINE NEGATIVE (Negative); NITRITE,URINE NEGATIVE (Negative); OCCULT BLOOD,URINE NEGATIVE (Negative); PROTEIN,URINE NEGATIVE (Negative)
[2024-03-23 19:45] LABS: HEMATOCRIT 26.7 % (42.0-52.0); HEMOGLOBIN 8.9 gm/dl (14.0-18.0)
[2024-03-24 04:53] LABS: BASOPHILS PERCENT AUTO 0.2 % (0.0-1.0); EOSINOPHILS ABSOLUTE AUTO 0.3 K/mm3 (0.0-0.4); EOSINOPHILS PERCENT AUTO 6.2 % (0.0-6.0); HEMATOCRIT 23.2 % (42.0-52.0); HEMOGLOBIN 7.6 gm/dl (14.0-18.0); IMMATURE GRAN ABSOLUTE AUTO 0.02 K/mm3 (0.00-0.05); IMMATURE GRAN PERCENT AUTO 0.4 % (0.0-0.4); LYMPHOCYTES ABSOLUTE AUTO 1.4 K/mm3 (1.0-4.8); MEAN CORPUSCULAR HEMOGLOBIN 31.4 pg (28.0-32.0); MEAN CORPUSCULAR HGB CONC 32.8 g/dl (32.0-36.0); MEAN CORPUSCULAR VOLUME 95.9 fl (83.0-99.0); MEAN PLATELET VOLUME 11.5 fl (9.4-12.4); MONOCYTES ABSOLUTE AUTO 0.5 K/mm3 (0.0-0.8); MONOCYTES PERCENT AUTO 9.6 % (0.0-8.0); NEUTROPHILS ABSOLUTE AUTO 3.2 K/mm3 (1.8-7.7); NEUTROPHILS PERCENT AUTO 58.6 % (41.0-71.0); PLATELET COUNT,PLT 102 K/mm3 (150-400); RED BLOOD CELL COUNT 2.42 M/mm3 (4.52-5.90); WHITE BLOOD CELL COUNT,WBC 5.52 K/mm3 (3.9-11.3)
[2024-03-24 05:07] LABS: BUN/CREATININE RATIO 30.8 (14-18); CALCIUM 8.2 mg/dL (8.5-10.1); CREATININE 1.3 mg/dL (0.7-1.3); EST CRCL DRUG DOSING (CG) 53.06 mL/min
[2024-03-24] MEDS: Pantoprazole 40 MG Vial IV SCH (08:55)
[2024-03-24] MEDS ORDERED: Pantoprazole 40 MG in Sodium Chloride 0.9% 100 ML IV SCH (09:00)
[2024-03-24] MEDS ORDERED: Sodium Chloride 0.9% 250 ML IV SCH (13:45)
[2024-03-24 14:01] LABS: INR 1.07; PROTHROMBIN TIME 11.4 SECONDS (9.7-12.0)
[2024-03-24] MEDS: Lactulose Soln 10 GM/15 ML 30 ML UD Cup PO SCH (15:11)
[2024-03-24 18:01] LABS: HEMATOCRIT 27.1 % (42.0-52.0); HEMOGLOBIN 8.9 gm/dl (14.0-18.0)
[2024-03-25 05:39] LABS: BASOPHILS PERCENT AUTO 0.6 % (0.0-1.0); EOSINOPHILS ABSOLUTE AUTO 0.4 K/mm3 (0.0-0.4); EOSINOPHILS PERCENT AUTO 7.2 % (0.0-6.0); HEMATOCRIT 24.1 % (42.0-52.0); IMMATURE GRAN ABSOLUTE AUTO 0.03 K/mm3 (0.00-0.05); IMMATURE GRAN PERCENT AUTO 0.6 % (0.0-0.4); LYMPHOCYTES ABSOLUTE AUTO 1.6 K/mm3 (1.0-4.8); LYMPHOCYTES PERCENT AUTO 31.8 % (24.0-44.0); MEAN CORPUSCULAR HEMOGLOBIN 32.1 pg (28.0-32.0); MEAN CORPUSCULAR HGB CONC 33.2 g/dl (32.0-36.0); MEAN CORPUSCULAR VOLUME 96.8 fl (83.0-99.0); MEAN PLATELET VOLUME 11.3 fl (9.4-12.4); MONOCYTES ABSOLUTE AUTO 0.6 K/mm3 (0.0-0.8); MONOCYTES PERCENT AUTO 11.2 % (0.0-8.0); NEUTROPHILS ABSOLUTE AUTO 2.5 K/mm3 (1.8-7.7); NEUTROPHILS PERCENT AUTO 48.6 % (41.0-71.0); PLATELET COUNT,PLT 100 K/mm3 (150-400); RED BLOOD CELL COUNT 2.49 M/mm3 (4.52-5.90); WHITE BLOOD CELL COUNT,WBC 5.16 K/mm3 (3.9-11.3)
[2024-03-25 05:45] LABS: BUN/CREATININE RATIO 22.3 (14-18); CALCIUM 8.3 mg/dL (8.5-10.1); CREATININE 1.3 mg/dL (0.7-1.3); EST CRCL DRUG DOSING (CG) 53.06 mL/min
[2024-03-25 12:40] VITALS: BP 118/65; PULSE 74
[2024-03-25 16:47] LABS: KEPPRA 42 ug/mL (10-40)
== END 2024-03-25 13:05 | disposition home or self-care (01) | DRG 377 ==
LOC: JD.ED 22:43 → JD.MS 03-22 09:46
PROVIDERS: ADMIT Student in an Organized Health Care Education/Training Program; ATTEND Student in an Organized Health Care Education/Training Program
PROC: 30233N1 Transfusion of Nonautologous Red Blood Cells into Peripheral Vein, Percutaneous Approach (ICD-10-PCS; principal; 2024-03-24)
DX: K92.2 Gastrointestinal hemorrhage, unspecified (principal); I95.9 Hypotension, unspecified; G93.41 Metabolic encephalopathy; I50.33 Acute on chronic diastolic (congestive) heart failure; N17.9 Acute kidney failure, unspecified; I13.0 Hypertensive heart and chronic kidney disease with heart failure and stage 1 through stage 4 chronic kidney disease, or unspecified chronic kidney disease; I50.9 Heart failure, unspecified; N18.9 Chronic kidney disease, unspecified; D62 Acute posthemorrhagic anemia; N18.4 Chronic kidney disease, stage 4 (severe); H54.7 Unspecified visual loss; E78.00 Pure hypercholesterolemia, unspecified; K21.9 Gastro-esophageal reflux disease without esophagitis; M10.9 Gout, unspecified; M19.90 Unspecified osteoarthritis, unspecified site; Z68.38 Body mass index [BMI] 38.0-38.9, adult; G62.9 Polyneuropathy, unspecified; G20.A1 Parkinson's disease without dyskinesia, without mention of fluctuations; E66.9 Obesity, unspecified; G40.909 Epilepsy, unspecified, not intractable, without status epilepticus; I25.118 Atherosclerotic heart disease of native coronary artery with other forms of angina pectoris; E86.0 Dehydration; I27.21 Secondary pulmonary arterial hypertension; D63.1 Anemia in chronic kidney disease; W19.XXXA Unspecified fall, initial encounter; I95.1 Orthostatic hypotension; I44.0 Atrioventricular block, first degree; N40.0 Benign prostatic hyperplasia without lower urinary tract symptoms; F32.A Depression, unspecified; Z66 Do not resuscitate; K76.82 Hepatic encephalopathy; K74.60 Unspecified cirrhosis of liver; D69.59 Other secondary thrombocytopenia; Z95.5 Presence of coronary angioplasty implant and graft; Z79.899 Other long term (current) drug therapy; Z79.02 Long term (current) use of antithrombotics/antiplatelets; Z79.82 Long term (current) use of aspirin; I25.2 Old myocardial infarction; Z87.11 Personal history of peptic ulcer disease; Z87.442 Personal history of urinary calculi; Z87.81 Personal history of (healed) traumatic fracture; Z86.73 Personal history of transient ischemic attack (TIA), and cerebral infarction without residual deficits; Z68.36 Body mass index [BMI] 36.0-36.9, adult; Z98.49 Cataract extraction status, unspecified eye; Z98.890 Other specified postprocedural states; Z90.49 Acquired absence of other specified parts of digestive tract; Z87.891 Personal history of nicotine dependence
CPT/HCPCS: 36415 ×2; 80053 ×2; 83880; 84443; 84484; 85025; 93005; 96360; 99285; J7030 ×2; 36430; 70450; 70450-26; 76705; 76705-26; 80048; 80177; 81003; 82140; 82272; 82306; 82607; 82746; 85014; 85018; 85610; 86592; 86850; 86900; 86901; 86922; 93010; 93306; 97110-GP; 97161-GP; A9270-GY; C9113; G0433; P9016

== ENCOUNTER 2024-11-05 13:10 | Inpatient (IN) | payer MEDICARE, BC ==
[2024-11-05 14:45] LABS: BASOPHILS PERCENT AUTO 0.4 % (0.0-1.0); EOSINOPHILS ABSOLUTE AUTO 0.2 K/mm3 (0.0-0.4); EOSINOPHILS PERCENT AUTO 2.7 % (0.0-6.0); HEMOGLOBIN 12.1 gm/dl (14.0-18.0); IMMATURE GRAN ABSOLUTE AUTO 0.03 K/mm3 (0.00-0.05); IMMATURE GRAN PERCENT AUTO 0.4 % (0.0-0.4); LYMPHOCYTES ABSOLUTE AUTO 1.5 K/mm3 (1.0-4.8); LYMPHOCYTES PERCENT AUTO 20.5 % (24.0-44.0); MEAN CORPUSCULAR HEMOGLOBIN 27.7 pg (28.0-32.0); MEAN CORPUSCULAR VOLUME 89.2 fl (83.0-99.0); MEAN PLATELET VOLUME 10.5 fl (9.4-12.4); MONOCYTES ABSOLUTE AUTO 0.6 K/mm3 (0.0-0.8); MONOCYTES PERCENT AUTO 8.5 % (0.0-8.0); NEUTROPHILS ABSOLUTE AUTO 4.9 K/mm3 (1.8-7.7); NEUTROPHILS PERCENT AUTO 67.5 % (41.0-71.0); PLATELET COUNT,PLT 188 K/mm3 (150-400); RED BLOOD CELL COUNT 4.37 M/mm3 (4.52-5.90); WHITE BLOOD CELL COUNT,WBC 7.32 K/mm3 (3.9-11.3)
[2024-11-05 15:11] LABS: A/G RATIO 0.9 (1-2); ALBUMIN 3.5 g/dl (3.4-5.0); ANION GAP 11.6 (5-15); BILIRUBIN TOTAL 0.8 mg/dL (0.2-1.0); BUN/CREATININE RATIO 12.8 (14-18); C-REACTIVE PROTEIN 0.79 mg/dL (<0.30); CREATININE 1.8 mg/dL (0.7-1.3); EST CRCL DRUG DOSING (CG) 37.72 mL/min; POTASSIUM,K 3.6 mEq/L (3.5-5.1); PROTEIN TOTAL,TP 7.4 g/dl (6.4-8.2)
[2024-11-05] MEDS: Sodium Chloride 0.9% 10 ML Syringe FLUSH PRN (16:11)
[2024-11-05] MEDS: Sodium Chloride 0.9% 500 ML IV ONE (16:11)
[2024-11-05] MEDS: Albumin 25% 12.5 GM/50 ML BAG IV ONE (16:18)
[2024-11-05 18:56] LABS: APPEARANCE,URINE CLEAR (Clear); BILIRUBIN,URINE NEGATIVE (Negative); COLOR,URINE YELLOW (Yellow); GLUCOSE,URINE TRACE (Negative); KETONES,URINE NEGATIVE (Negative); LEUKOCYTE ESTERASE,URINE NEGATIVE (Negative); NITRITE,URINE NEGATIVE (Negative); OCCULT BLOOD,URINE NEGATIVE (Negative); PROTEIN,URINE NEGATIVE (Negative)
[2024-11-05] MEDS ORDERED: MIDODRINE 2.5 MG PO PRN (20:05)
[2024-11-05] MEDS ORDERED: Midodrine 5 MG Tab PO PRN (21:09)
[2024-11-05] MEDS: Gabapentin 300 MG Cap PO ONE (21:32)
[2024-11-05] MEDS: levETIRAcetam Soln 500 MG/5 ML Cup PO ONE (21:32)
[2024-11-05] MEDS: Gabapentin 300 MG Cap PO SCH (21:55)
[2024-11-05] MEDS: LACOSAMIDE 150 MG PO SCH (21:58)
[2024-11-05] MEDS: Lacosamide 100 MG Tab PO SCH (22:43)
[2024-11-06] MEDS: levETIRAcetam 500 MG Tab PO SCH (06:22)
[2024-11-06] MEDS: Pantoprazole 40 MG Tab.CR PO SCH (06:22)
[2024-11-06] MEDS ORDERED: Non-Formulary Medication 1 Each (Levetiracetam [Keppra] 1,000 MG Tablet) PO SCH (07:00)
[2024-11-06] MEDS ORDERED: Midodrine 5 MG Tab PO PRN (07:51)
[2024-11-06] MEDS ORDERED: Polyethylene Glycol 3350 Powder 17 GM Packet PO PRN (07:52)
[2024-11-06] MEDS ORDERED: Ondansetron 4 MG/2 ML SDV IV PRN (07:52)
[2024-11-06] MEDS ORDERED: Acetaminophen 325 MG Tab PO PRN (07:52)
[2024-11-06] MEDS ORDERED: Docusate Sodium 100 MG Cap PO PRN (07:52)
[2024-11-06 08:39] LABS: ANION GAP 13.3 (5-15); CALCIUM 8.8 mg/dL (8.5-10.1); CREATININE 1.6 mg/dL (0.7-1.3); EST CRCL DRUG DOSING (CG) 42.44 mL/min; POTASSIUM,K 3.3 mEq/L (3.5-5.1)
[2024-11-06] MEDS ORDERED: Carboxymethylcellulose Sodium 1% Ophth Gel 15 ML Bottle EYEBOTH PRN (08:52)
[2024-11-06] MEDS ORDERED: Non-Formulary Medication 1 Each (Tadalafil [Cialis] 20 MG Tablet) PO SCH (09:00)
[2024-11-06] MEDS ORDERED: Non-Formulary Medication 1 Each (Timolol Maleate/Pf [Timolol Maleate 0.5% Eye Drop] 1 EACH EYEBOTH SCH (09:00)
[2024-11-06] MEDS ORDERED: Non-Formulary Medication 1 Each (Fluoxetine Hcl [Fluoxetine Hcl] 40 MG Capsule) PO SCH (09:00)
[2024-11-06] MEDS ORDERED: Empagliflozin 10 MG Tab PO SCH (09:00)
[2024-11-06] MEDS: Furosemide 80 MG Tab PO SCH (09:38)
[2024-11-06] MEDS: Timolol Maleate 0.5% Ophth Soln 5 ML Bottle EYEBOTH SCH (09:38)
[2024-11-06] MEDS: atorvaSTATin 20 MG Tab PO SCH (09:38)
[2024-11-06] MEDS: Folic Acid 1 MG Tab PO SCH (09:38)
[2024-11-06] MEDS: FLUoxetine 20 MG Cap PO SCH (09:39)
[2024-11-06] MEDS: Aspirin 81 MG Tab.EC PO SCH (09:39)
[2024-11-06] MEDS: Enoxaparin 40 MG/0.4 ML Syringe SUBCUT SCH (09:39)
[2024-11-06] MEDS: Potassium Chloride 20 MEQ Tab.ER PO SCH (09:39)
[2024-11-06] MEDS: Midodrine 5 MG Tab PO ONE (12:10)
[2024-11-06] MEDS: Midodrine 5 MG Tab PO SCH (16:59)
[2024-11-07 04:42] LABS: BASOPHILS PERCENT AUTO 0.3 % (0.0-1.0); EOSINOPHILS ABSOLUTE AUTO 0.2 K/mm3 (0.0-0.4); EOSINOPHILS PERCENT AUTO 2.5 % (0.0-6.0); HEMATOCRIT 36.1 % (42.0-52.0); HEMOGLOBIN 11.2 gm/dl (14.0-18.0); IMMATURE GRAN ABSOLUTE AUTO 0.02 K/mm3 (0.00-0.05); IMMATURE GRAN PERCENT AUTO 0.3 % (0.0-0.4); LYMPHOCYTES ABSOLUTE AUTO 1.8 K/mm3 (1.0-4.8); LYMPHOCYTES PERCENT AUTO 27.5 % (24.0-44.0); MEAN CORPUSCULAR HEMOGLOBIN 27.5 pg (28.0-32.0); MEAN CORPUSCULAR VOLUME 88.7 fl (83.0-99.0); MEAN PLATELET VOLUME 10.6 fl (9.4-12.4); MONOCYTES ABSOLUTE AUTO 0.5 K/mm3 (0.0-0.8); MONOCYTES PERCENT AUTO 8.1 % (0.0-8.0); NEUTROPHILS ABSOLUTE AUTO 4.1 K/mm3 (1.8-7.7); NEUTROPHILS PERCENT AUTO 61.3 % (41.0-71.0); PLATELET COUNT,PLT 149 K/mm3 (150-400); RED BLOOD CELL COUNT 4.07 M/mm3 (4.52-5.90); WHITE BLOOD CELL COUNT,WBC 6.68 K/mm3 (3.9-11.3)
[2024-11-07 05:16] LABS: A/G RATIO 0.9 (1-2); ALBUMIN 3.2 g/dl (3.4-5.0); ANION GAP 13.2 (5-15); BILIRUBIN TOTAL 0.8 mg/dL (0.2-1.0); BUN/CREATININE RATIO 15.3 (14-18); CALCIUM 8.9 mg/dL (8.5-10.1); CREATININE 1.7 mg/dL (0.7-1.3); EST CRCL DRUG DOSING (CG) 39.94 mL/min; MAGNESIUM 1.9 mg/dL (1.8-2.4); POTASSIUM,K 4.2 mEq/L (3.5-5.1); PROTEIN TOTAL,TP 6.9 g/dl (6.4-8.2)
[2024-11-07] MEDS: Non-Formulary Medication 1 Each (Tadalafil [Cialis] 20 MG Tablet) PO SCH (21:41)
[2024-11-08] MEDS: Acetaminophen/HYDROcodone 325-5 MG Tab PO PRN (00:49)
[2024-11-08 04:22] LABS: BASOPHILS PERCENT AUTO 0.3 % (0.0-1.0); EOSINOPHILS ABSOLUTE AUTO 0.2 K/mm3 (0.0-0.4); HEMATOCRIT 35.3 % (42.0-52.0); IMMATURE GRAN ABSOLUTE AUTO 0.01 K/mm3 (0.00-0.05); IMMATURE GRAN PERCENT AUTO 0.1 % (0.0-0.4); LYMPHOCYTES ABSOLUTE AUTO 1.9 K/mm3 (1.0-4.8); LYMPHOCYTES PERCENT AUTO 26.9 % (24.0-44.0); MEAN CORPUSCULAR HEMOGLOBIN 27.4 pg (28.0-32.0); MEAN CORPUSCULAR HGB CONC 31.2 g/dl (32.0-36.0); MEAN PLATELET VOLUME 11.4 fl (9.4-12.4); MONOCYTES ABSOLUTE AUTO 0.7 K/mm3 (0.0-0.8); MONOCYTES PERCENT AUTO 9.4 % (0.0-8.0); NEUTROPHILS ABSOLUTE AUTO 4.2 K/mm3 (1.8-7.7); NEUTROPHILS PERCENT AUTO 60.3 % (41.0-71.0); PLATELET COUNT,PLT 150 K/mm3 (150-400); RED BLOOD CELL COUNT 4.01 M/mm3 (4.52-5.90); WHITE BLOOD CELL COUNT,WBC 6.94 K/mm3 (3.9-11.3)
[2024-11-08 04:49] LABS: A/G RATIO 0.8 (1-2); ALBUMIN 3.1 g/dl (3.4-5.0); ANION GAP 13.4 (5-15); BILIRUBIN TOTAL 0.6 mg/dL (0.2-1.0); BUN/CREATININE RATIO 17.8 (14-18); CREATININE 1.8 mg/dL (0.7-1.3); EST CRCL DRUG DOSING (CG) 37.72 mL/min; MAGNESIUM 1.8 mg/dL (1.8-2.4); POTASSIUM,K 3.4 mEq/L (3.5-5.1); PROTEIN TOTAL,TP 6.8 g/dl (6.4-8.2)
[2024-11-08 07:43] VITALS: BP 117/49; PULSE 71
[2024-11-08] MEDS: Potassium Chloride 20 MEQ Tab.ER PO ONE (07:59)
[2024-11-08 20:42] LABS: KEPPRA 77 ug/mL (10-40)
== END 2024-11-08 12:57 | DRG 683 ==
LOC: JD.ED 13:10 → JD.MS 20:09
PROVIDERS: ADMIT Internal Medicine; ATTEND Internal Medicine
DX: N17.9 Acute kidney failure, unspecified (principal); I13.0 Hypertensive heart and chronic kidney disease with heart failure and stage 1 through stage 4 chronic kidney disease, or unspecified chronic kidney disease; I50.30 Unspecified diastolic (congestive) heart failure; H54.7 Unspecified visual loss; Z66 Do not resuscitate; R09.02 Hypoxemia; N18.9 Chronic kidney disease, unspecified; R42 Dizziness and giddiness; I25.2 Old myocardial infarction; J40 Bronchitis, not specified as acute or chronic; M10.9 Gout, unspecified; K27.9 Peptic ulcer, site unspecified, unspecified as acute or chronic, without hemorrhage or perforation; M19.90 Unspecified osteoarthritis, unspecified site; G62.9 Polyneuropathy, unspecified; E78.00 Pure hypercholesterolemia, unspecified; D64.9 Anemia, unspecified; G20.A1 Parkinson's disease without dyskinesia, without mention of fluctuations; M25.561 Pain in right knee; K21.9 Gastro-esophageal reflux disease without esophagitis; I95.1 Orthostatic hypotension; R53.1 Weakness; N18.32 Chronic kidney disease, stage 3b; E87.6 Hypokalemia; Z86.73 Personal history of transient ischemic attack (TIA), and cerebral infarction without residual deficits; Z68.35 Body mass index [BMI] 35.0-35.9, adult; Z98.890 Other specified postprocedural states; Z90.49 Acquired absence of other specified parts of digestive tract; Z72.0 Tobacco use; E66.9 Obesity, unspecified; Z95.5 Presence of coronary angioplasty implant and graft; Z79.899 Other long term (current) drug therapy; R29.6 Repeated falls; Z68.36 Body mass index [BMI] 36.0-36.9, adult; Z79.82 Long term (current) use of aspirin
CPT/HCPCS: 36415; 71046; 80053; 81003; 83880; 84484; 85025; 86140; 87428; 93005; 96361; 96365; 99285; J7030; P9047; 735622650; 73562-50; 80048; 80177; 83735; 93010; 94760; 94761; 97110-GP; 97116-GP; 97162-GP; 97530-GP; A9270-GY; J1650; U0002

== ENCOUNTER 2025-03-10 15:08 | Emergency (ER) | payer MEDICARE, BC ==
[2025-03-10 15:46] LABS: BASOPHILS PERCENT AUTO 0.1 % (0.0-1.0); HEMATOCRIT 32.6 % (42.0-52.0); HEMOGLOBIN 9.9 gm/dl (14.0-18.0); IMMATURE GRAN ABSOLUTE AUTO 0.12 K/mm3 (0.00-0.05); IMMATURE GRAN PERCENT AUTO 0.6 % (0.0-0.4); LYMPHOCYTES ABSOLUTE AUTO 1.2 K/mm3 (1.0-4.8); MEAN CORPUSCULAR HGB CONC 30.4 g/dl (32.0-36.0); MEAN CORPUSCULAR VOLUME 82.3 fl (83.0-99.0); MEAN PLATELET VOLUME 10.7 fl (9.4-12.4); MONOCYTES ABSOLUTE AUTO 1.3 K/mm3 (0.0-0.8); MONOCYTES PERCENT AUTO 6.2 % (0.0-8.0); NEUTROPHILS ABSOLUTE AUTO 17.7 K/mm3 (1.8-7.7); NEUTROPHILS PERCENT AUTO 87.1 % (41.0-71.0); PLATELET COUNT,PLT 177 K/mm3 (150-400); RED BLOOD CELL COUNT 3.96 M/mm3 (4.52-5.90); WHITE BLOOD CELL COUNT,WBC 20.38 K/mm3 (3.9-11.3)
[2025-03-10] MEDS: Ondansetron 4 MG/2 ML SDV IVPUSH ONE (16:03)
[2025-03-10 16:17] LABS: A/G RATIO 0.8 (1-2); ALANINE AMINOTRANSFERASE,ALT 15 U/L (16-63); ALBUMIN 3.1 g/dl (3.4-5.0); ALKALINE PHOSPHATASE 89 U/L (46-116); ANION GAP 11.2 (5-15); ASPARTATE AMNIOTRANSFERASE,AST 19 U/L (15-37); BILIRUBIN TOTAL 1.3 mg/dL (0.2-1.0); BLOOD UREA NITROGEN,BUN 33 mg/dL (7-18); CALCIUM 9.2 mg/dL (8.5-10.1); CARBON DIOXIDE,CO2 30 mEq/L (21-32); CHLORIDE,CL 103 mEq/L (98-107); CREATINE KINASE,CK 86 U/L (39-308); CREATININE 2.2 mg/dL (0.7-1.3); ESTIMATED GFR 30 mL/min (>60); GLUCOSE RANDOM 124 mg/dL (70-99); LIPASE 25 U/L (16-77); MAGNESIUM 2.2 mg/dL (1.8-2.4); POTASSIUM,K 3.2 mEq/L (3.5-5.1); PROTEIN TOTAL,TP 7.2 g/dl (6.4-8.2); SODIUM,NA 141 mEq/L (136-145)
[2025-03-10 16:22] LABS: TROPONIN I HIGH SENSITIVITY 500 pg/mL (<=76)
[2025-03-10 21:09] LABS: APPEARANCE,URINE CLEAR (Clear); BILIRUBIN,URINE NEGATIVE (Negative); COLOR,URINE YELLOW (Yellow); GLUCOSE,URINE 1+ (Negative); KETONES,URINE NEGATIVE (Negative); LEUKOCYTE ESTERASE,URINE NEGATIVE (Negative); NITRITE,URINE NEGATIVE (Negative); OCCULT BLOOD,URINE NEGATIVE (Negative); PROTEIN,URINE NEGATIVE (Negative); UROBILINOGEN,URINE 0.2 (0.2-1.0)
[2025-03-10 21:58] VITALS: BP 131/76; PULSE 69
== END 2025-03-10 22:23 | disposition home or self-care (01) ==
LOC: JD.ED 15:08
DX: I13.0 Hypertensive heart and chronic kidney disease with heart failure and stage 1 through stage 4 chronic kidney disease, or unspecified chronic kidney disease (principal); N18.9 Chronic kidney disease, unspecified; I50.9 Heart failure, unspecified; R79.89 Other specified abnormal findings of blood chemistry; D64.89 Other specified anemias; D72.828 Other elevated white blood cell count; E87.6 Hypokalemia; N17.9 Acute kidney failure, unspecified; I25.2 Old myocardial infarction; E80.6 Other disorders of bilirubin metabolism; Z86.73 Personal history of transient ischemic attack (TIA), and cerebral infarction without residual deficits; Z95.5 Presence of coronary angioplasty implant and graft; Z90.49 Acquired absence of other specified parts of digestive tract; Z79.82 Long term (current) use of aspirin; Z79.899 Other long term (current) drug therapy
CPT/HCPCS: 36415; 71045; 80053; 81003; 82550; 83605; 83690; 83735; 83880; 84484; 85025; 87040; 93005; 96374; 99285; J2405